=== PATIENT | male | born 1960 | race Caucasian/White ===

== ENCOUNTER 2020-07-08 10:31 | Inpatient (IN) | payer MEDICAID, SELFPAY ==
[2020-07-08] VITALS (14 sets, daily range): BP systolic 110–125; BP diastolic 78–89; PULSE 60–78; RESP 16–20; TEMP 36.1–36.4; O2SAT 91–97; BMI 34.2
--- NOTE | 2020-07-08 11:09 | ED_ITS ---
HPI - Abdominal Pain General Chief Complaint: Abdominal Pain Stated Complaint: Severe stomch pain Time Seen by Provider: 07/08/20 11:00 Source: patient Mode of arrival: Ambulatory Limitations: no limitations History of Present Illness HPI narrative: Patient is 59-year-old male history of congestive heart failure previously on hospice but now is no longer on hospice presenting with ongoing left-sided abdominal pain for the last 2-3 weeks. Try to get workup as an outpatient but was denied by insurance pain has continued in progressively gotten slightly worse. He denies any nausea or vomiting. She is not having chest pain but is having some shortness of breath with exertion and some mild orthopnea. Since says that he also has ext sleep apnea and wakes up frequently during the night. He has no significant lower extremity edema no fever or cough. MD complaint: abdominal pain Location: LUQ and LLQ Quality: cramping Radiation: none Migration to: no migration Relieving factors: nothing Exacerbating factors: nothing Related Data Allergies Allergy/AdvReac Type Severity Reaction Status Date / Time metformin Allergy Intermediate Vomiting Verified 07/08/20 10:41 Review of Systems Review of Systems ROS Unobtainable: All systems reviewed & are unremarkable except as noted in HPI and below Constitutional Constitutional: Denies chills, Denies fever(s), Denies lethargy and Denies weakness Eyes Eyes: Denies change in vision, Denies eye discharge, Denies irritation and Denies loss of vision ENT Ears, Nose, Mouth, and Throat: Denies dizziness Cardiovascular Cardiovascular: Denies chest pain, Denies rapid heart rate, Denies pedal edema, Denies edema, Denies leg edema, Reports dyspnea on exertion and Reports ort hopnea Respiratory Respiratory: Denies cough, Denies hemoptysis and Reports dyspnea on exertion Gastrointestinal Gastrointestinal: Reports as per HPI Musculoskeletal Musculoskeletal: Denies back pain and Denies myalgias Integumentary/Breasts Skin/Breast: Denies pruritus, Denies erythema, Denies rash and Denies wounds Neurologic Neurologic: Denies dizziness, Denies loss of vision and Denies weakness Patient History Medical History Congestive heart failure Social History household members: family Smoking Status: Never smoker Smoking Status: Never smoker alcohol intake frequency: 0-2 drinks per day Substance Use Type: marijuana Exam Initial Vital Signs Initial Vital Signs: Vital Signs Temperature 97.1 F 07/08/20 10:37 Pulse Rate 78 07/08/20 10:37 Respiratory Rate 18 07/08/20 10:37 Blood Pressure 110/78 07/08/20 10:37 Pulse Oximetry 97 07/08/20 10:37 GENERAL: Alert pleasant 51-year-old male appears older than stated age and in no acute distress. HEENT: Head atraumatic,EOMI, pupils reactive, face symmetric, moist mucous membranes CARDIOVASCULAR: Regular rate and rhythm without murmurs, rubs or gallops. RESPIRATORY: Breath sounds equal bilaterally, no wheezes rales or rhonchi. ABDOMEN: Soft, mild tenderness left upper quadrant and epigastric no guarding or rebound no right upper quadrant pain negative Leblanc sign EXTREMITIES: Normal range of motion, no clubbing or edema. Neurovascularly intact NEUROLOGICAL: Alert and oriented x4.Normal gait and speech. SKIN: Warm, dry, no laceration, no petechiae, no rashes or lesions. Course Orders Ordered: ED Orders 07/08/20 10:43 EKG-12 Lead Stat 07/08/20 11:07 XR chest 1V Stat 07/08/20 11:25 COVID19 - ADMIT (REGULATORY AFFAIRS ASSISTANT swab/PCR) Stat Complete Blood Count AUTO DIFF Stat Comprehensive Metabolic Panel Stat Lipase Stat NT-proBNP (BNP-Adult 18+) Stat Partial Thromboplastin Time Stat Prothrombin Time INR Stat Trop I [Troponin I] Stat 07/08/20 11:59 CT abdomen pelvis w con Stat 07/08/20 13:37 Urinalysis and Microscopic Stat Acetaminophen (Acetaminophen 325 Mg Tablet) 650 mg PO Q6HR PRN PRN Reason: Fever/Mild Pain (1-3) Calcium Carbonate (Calcium Carbonate 500 Mg Tab) 1,000 mg PO Q4HR PRN PRN Reason: Dyspepsia Dextrose (Dextrose 50 % In Water 25 Gm/50 Ml Syringe) 25 gm IV PRN PRN PRN Reason: Hypoglycemia Furosemide (Furosemide 40 Mg/4 Ml Vial) 40 mg IV 0700,1730 EBONY Heparin Sodium (Porcine) (Heparin 5,000 Unit/Ml Vial) 5,000 unit SUBCUT BID EBONY Insulin Aspart (Insulin Aspart 100 Unit/Ml Insuln Pen) 0 unit SUBCUT ACHS EBONY; Protocol Metoclopramide HCl (Metoclopramide 10 Mg/2 Ml Inj) 10 mg IV Q6HR PRN PRN Reason: Nausea And Vomiting Naloxone HCl (Naloxone 0.4 Mg/Ml Vial) 0.2 mg IV Q2MIN PRN PRN Reason: Opiate Reversal Oxycodone HCl (Oxycodone Ir 5 Mg Tablet) 5 mg PO Q6HR PRN PRN Reason: Pain, Moderate (4-6) Last Admin: 07/08/20 17:45 Dose: 5 mg Documented by: WILMA Pantoprazole Sodium (Pantoprazole 20 Mg Tablet) 20 mg PO 0600 EBONY Discontinued Medications Furosemide (Furosemide 20 Mg/2 Ml Vial) 20 mg IV 0700,1730 EBONY Last Admin: 07/08/20 17:46 Dose: 20 mg Documented by: WILMA Lorazepam (Lorazepam 0.5 Mg Tablet) 1 mg PO NOW ONE Stop: 07/08/20 11:58 Last Admin: 07/08/20 12:01 Dose: 1 mg Documented by: CAYDEN Morphine Sulfate (Morphine 2 Mg/Ml Inj) 2 mg IV NOW ONE Stop: 07/08/20 13:40 Last Admin: 07/08/20 13:45 Dose: 2 mg Documented by: JORDANA Ondansetron HCl (Ondansetron 4 Mg/2 Ml Inj) 4 mg IV NOW ONE Stop: 07/08/20 10:44 Last Admin: 07/08/20 11:44 Dose: 4 mg Documented by: CAYDEN Vital Signs Vital signs: Vital Signs - 8 hr 07/08/20 10:37 07/08/20 14:26 07/08/20 14:34 Temperature 97.1 F Pulse Rate 78 71 75 Respiratory Rate 18 20 Blood Pressure 110/78 116/81 Pulse Oximetry 97 96 07/08/20 14:45 07/08/20 15:00 07/08/20 15:15 Temperature Pulse Rate 67 70 65 Respiratory Rate 18 18 Blood Pressure 120/89 120/88 123/87 Pulse Oximetry 07/08/20 15:30 07/08/20 15:45 Temperature Pulse Rate 68 72 Respiratory Rate Blood Pressure 122/87 119/80 Pulse Oximetry MDM - Abdominal Pain Lab Data Attestation: I reviewed the patient's lab results. Result diagrams: 07/08/20 11:25 07/08/20 11:25 Labs: Lab Results 07/08/20 07/08/20 07/08/20 Range/Units 11:25 11:25 11:25 WBC 11.1 H (4.5-11.0) X10^3/uL RBC 5.19 (4.5-5.9) X10^6/uL Hgb 15.1 (13.5-17.5) g/dL Hct 46.6 (41-53) % MCV 89.7 (80-100) fL MCH 29.1 (26-34) PG MCHC 32.4 (30-36) % RDW 15.2 H (11.6-14.8) % Plt Count 190 (150-400) X10^3/uL Neut % (Auto) 63.2 (50-75) % Lymph % (Auto) 22.8 L (25-40) % Hanson % (Auto) 11.4 (3-14) % Eos % (Auto) 1.4 L (2-4) % Baso % (Auto) 1.2 (0-2) % Neut # (Auto) 7000 (7857-6618) /uL Lymph # (Auto) 2500 (8064-8557) /uL Hanson # (Auto) 1300 H (0-900) /uL Eos # (Auto) 200 (0-450) /uL Baso # (Auto) 100 (0-100) /uL PT 18.6 H (10.1-12.7) SECONDS INR 1.7 H (0.9-1.3) APTT 36 (26.4-36.2) SECONDS Sodium 138 (137-145) mmol/L Potassium 4.6 (3.4-5.1) mmol/L Chloride 95 L (98-107) mmol/L Carbon Dioxide 34 H (22-32) mmol/L BUN 41 H (9-20) mg/dL Creatinine 1.70 H (0.66-1.25) mg/dL Estimated GFR 41.6 L (>60) mL/min BUN/Creatinine Ratio 24.1 H (6-22) Glucose 155 H (70-100) mg/dL Calcium 9.4 (8.4-10.2) mg/dL Total Bilirubin 1.0 (0.2-1.3) mg/dL AST 37 (17-59) IU/L ALT 29 (<50) IU/L Alkaline Phosphatase 67 (38-126) U/L Troponin I (0.01-0.034) ng/mL NT-Pro-B Natriuret Pep (<125) pg/mL Total Protein 7.4 (6.3-8.2) g/dL Albumin 4.5 (3.5-5.0) g/dL Globulin 2.9 (1.7-4.1) g/dL Albumin/Globulin Ratio 1.6 (1.0-2.8) Lipase 127 (23-300) U/L Urine Color Urine Appearance Urine pH (4.5-8.0) Ur Specific Gillett (1.000-1.035) Urine Protein (Negative) Urine Glucose (UA) (Negative) g/dL Urine Ketones (NEGATIVE) Urine Occult Blood (Negative) Urine Nitrate (Negative) Urine Bilirubin (NEGATIVE) Urine Urobilinogen (0.2) E.U./dL Ur Leukocyte Esterase (NEGATIVE) Urine RBC (0-5/HPF) Urine WBC (0-5/HPF) Ur Squamous Epith Cells (0-5/HPF) Urine Bacteria (None) Ur Culture Indicated? SARS-CoV-2 (PCR) (Negative) 07/08/20 07/08/20 07/08/20 Range/Units 11:25 11:25 13:37 WBC (4.5-11.0) X10^3/uL RBC (4.5-5.9) X10^6/uL Hgb (13.5-17.5) g/dL Hct (41-53) % MCV (80-100) fL MCH (26-34) PG MCHC (30-36) % RDW (11.6-14.8) % Plt Count (150-400) X10^3/uL Neut % (Auto) (50-75) % Lymph % (Auto) (25-40) % Hanson % (Auto) (3-14) % Eos % (Auto) (2-4) % Baso % (Auto) (0-2) % Neut # (Auto) (0448-7968) /uL Lymph # (Auto) (0538-0948) /uL Hanson # (Auto) (0-900) /uL Eos # (Auto) (0-450) /uL Baso # (Auto) (0-100) /uL PT (10.1-12.7) SECONDS INR (0.9-1.3) APTT (26.4-36.2) SECONDS Sodium (137-145) mmol/L Potassium (3.4-5.1) mmol/L Chloride (98-107) mmol/L Carbon Dioxide (22-32) mmol/L BUN (9-20) mg/dL Creatinine (0.66-1.25) mg/dL Estimated GFR (>60) mL/min BUN/Creatinine Ratio (6-22) Glucose (70-100) mg/dL Calcium (8.4-10.2) mg/dL Total Bilirubin (0.2-1.3) mg/dL AST (17-59) IU/L ALT (<50) IU/L Alkaline Phosphatase (38-126) U/L Troponin I 0.029 (0.01-0.034) ng/mL NT-Pro-B Natriuret Pep 2650 H (<125) pg/mL Total Protein (6.3-8.2) g/dL Albumin (3.5-5.0) g/dL Globulin (1.7-4.1) g/dL Albumin/Globulin Ratio (1.0-2.8) Lipase (23-300) U/L Urine Color Yellow Urine Appearance Clear Urine pH 6.5 (4.5-8.0) Ur Specific Gillett 1.010 (1.000-1.035) Urine Protein Negative (Negative) Urine Glucose (UA) Negative (Negative) g/dL Urine Ketones Negative (NEGATIVE) Urine Occult Blood Negative (Negative) Urine Nitrate Negative (Negative) Urine Bilirubin Negative (NEGATIVE) Urine Urobilinogen 0.2 (0.2) E.U./dL Ur Leukocyte Esterase Negative (NEGATIVE) Urine RBC None seen (0-5/HPF) Urine WBC 0-1/hpf (0-5/HPF) Ur Squamous Epith Cells 0-1 /hpf (0-5/HPF) Urine Bacteria None seen (None) Ur Culture Indicated? Cult not indicated SARS-CoV-2 (PCR) Negative (Negative) Imaging Data Chest x-ray: Radiologist's Impression: PROCEDURE: XR CHEST 1V INDICATIONS: sob TECHNIQUE: One view of the chest was acquired. COMPARISON: None. FINDINGS: Surgical changes and devices: Pacemaker. Lungs and pleura: Lungs are clear. No pleural effusions or pneumothorax. Mediastinum: Mediastinal contours appear normal. Heart size is enlarged. Bones and chest wall: No suspicious bony lesions. Overlying soft tissues appear unremarkable. IMPRESSION: No acute pulmonary process. Dictated by: Brooklny Guzman M.D. on 07/08/2020 at 12:19 Approved by: Brooklyn Guzman M.D. on 07/08/2020 at 12:19 CT scan - abdomen/pelvis: Radiologist's Impression: PROCEDURE: CT ABDOMEN PELVIS W CON INDICATIONS: left sided pain TECHNIQUE: After the administration of oral and intravenous contrast, 5 mm thick sections acquired from the diaphragms to the symphysis. 5 mm thick coronal and sagittal reformats were performed. For radiation dose reduction, the following was used: automated exposure control, adjustment of mA and/or kV according to patient size. COMPARISON: None. FINDINGS: Image quality: Excellent. ABDOMEN: Lung bases: Lung bases are clear. Heart size is normal. Solid organs: Liver is enlarged with steatosis. Gallbladder has been removed. Biliary system is non-dilated. Pancreas enhances normally. Spleen is normal in size and enhancement. There is a slight nodular prominence of the adrenal glands bilaterally. Kidneys are normal in size and enhancement, without hydronephrosis. Peritoneum and bowel: Stomach, small bowel, and colon loops are normal in caliber and wall thickness. There is a focus of free fluid within the midline of the lower pelvis measuring 11.4 cm AP x 7.9 cm transverse. Fluid tracks into the right lower quadrant surrounding the region of the cecum. The appendix is not clearly identified. Mild scattered colonic diverticula are present. Visualized portions of the colon particularly the sigmoid which is adjacent to the fluid collection is minimally thickened. There is no free air. Nodes and vessels: No retroperitoneal or mesenteric adenopathy. Aorta and inferior vena cava are normal in caliber. Miscellaneous: No ventral hernias. PELVIS: Genitourinary: Bladder wall thickness is normal. Miscellaneous: Bilateral fat containing inguinal hernias are present. Bones: No suspicious bony lesions. No vertebral body compression fractures. IMPRESSION: 1. Prominent focus of central pelvic fluid as described above of uncertain etiology. It is noted that the appendix is not identified and ruptured appendix cannot be excluded. There is no visualized free air to suggest visceral perforation. Clinical correlation and potential surgical consultation are recommended. 2. Hepatomegaly with steatosis. 3. Mild nodularity of the adrenal glands bilaterally, nonspecific. Dictated by: Brooklyn Guzman M.D. on 07/08/2020 at 12:20 ECG Data Attestation: I personally reviewed and interpreted this ECG as follows: Prior ECG tracings: not available for review Interpretation: Paced rhythm rate [address] changes no priors to compare MDM Narrative Medical decision making narrative: Patient has been having ongoing abdominal pain for a number of weeks may be slightly worse today. He has mild leukocytosis of 11 remains afebrile. The collection is found on CT. Difficult to discern with this fluid collection is from. There is no definite perforation identified. Patient's pain is actually very mild he has not even require pain medication in the emergency department. Consultation with surgery, also unclear what his collections is from. He does have some mild CHF exacerbation with symptoms of shortness of breath and mild orthopnea with mild elevation of BNP of 2600. 2:[address] foley updated patient's symptoms test results at this time unclear what fluid collection is from. Recommends admitting to Medicine with possible Radiology to drain fluid collection. 2:[address] Soares updated patient's symptoms test results requesting previous record is and is in ED to see and evaluate patient. At this time is patient needs observation. Discharge Plan Departure Patient Disposition: Admitted as Observation Clinical Impression: Abdominal pain Qualifiers: Abdominal location: generalized Qualified Code(s): R10.84 - Generalized abdominal pain Admit Date/Time: 07/08/20 15:56 Admit Provider: Giovanny Santiago
[2020-07-08 11:40] LABS: Add Manual Diff / Slide Review NO; Basophils Absolute Auto 100 /uL (0-100); Basophils Percent Auto 1.2 % (0-2); Eosinophils Absolute Auto 200 /uL (0-450); Eosinophils Percent Auto 1.4 % (2-4); Hematocrit 46.6 % (41-53); Hemoglobin 15.1 g/dL (13.5-17.5); Lymphocytes Absolute Auto 2500 /uL (1100-4500); Lymphocytes Percent Auto 22.8 % (25-40); Mean Corpuscular HGB Conc 32.4 % (30-36); Mean Corpuscular Hemoglobin 29.1 PG (26-34); Mean Corpuscular Volume 89.7 fL (80-100); Monocytes Absolute Auto 1300 /uL (0-900); Monocytes Percent Auto 11.4 % (3-14); Neutrophils Absolute Auto 7000 /uL (1500-7000); Neutrophils Percent Auto 63.2 % (50-75); Platelet Count 190 X10^3/uL (150-400); Red Blood Cell Count 5.19 X10^6/uL (4.5-5.9); Red Cell Distribution Width 15.2 % (11.6-14.8); White Blood Cell Count 11.1 X10^3/uL (4.5-11.0)
[2020-07-08] MEDS: ONDANSETRON 4 MG/2 ML INJ IV (11:44)
[2020-07-08 11:46] LABS: INR 1.7 (0.9-1.3); Prothrombin Time 18.6 SECONDS (10.1-12.7)
[2020-07-08 11:49] LABS: PTT Partial Thromboplastin Tim 36 SECONDS (26.4-36.2)
[2020-07-08 11:51] LABS: Alanine Aminotransferase 29 IU/L (<50); Albumin 4.5 g/dL (3.5-5.0); Albumin Globulin Ratio 1.6 (1.0-2.8); Alkaline Phosphatase 67 U/L (38-126); Aspartate Aminotransferase 37 IU/L (17-59); BUN Creatinine Ratio 24.1 (6-22); Blood Urea Nitrogen 41 mg/dL (9-20); Calcium 9.4 mg/dL (8.4-10.2); Carbon Dioxide 34 mmol/L (22-32); Chloride 95 mmol/L (98-107); Estimated Glomerular Filt Rate 41.6 mL/min (>60); Globulin 2.9 g/dL (1.7-4.1); Glucose 155 mg/dL (70-100); HEMOLYSIS < 15 (0-50); Lipase 127 U/L (23-300); Potassium 4.6 mmol/L (3.4-5.1); Sodium 138 mmol/L (137-145); Total Protein 7.4 g/dL (6.3-8.2)
--- NOTE | 2020-07-08 11:59 | DI.CT.S_ITS ---
PROCEDURE: CT ABDOMEN PELVIS W CON INDICATIONS: left sided pain TECHNIQUE: After the administration of oral and intravenous contrast, 5 mm thick sections acquired from the diaphragms to the symphysis. 5 mm thick coronal and sagittal reformats were performed. For radiation dose reduction, the following was used: automated exposure control, adjustment of mA and/or kV according to patient size. COMPARISON: None. FINDINGS: Image quality: Excellent. ABDOMEN: Lung bases: Lung bases are clear. Heart size is normal. Solid organs: Liver is enlarged with steatosis. Gallbladder has been removed. Biliary system is non-dilated. Pancreas enhances normally. Spleen is normal in size and enhancement. There is a slight nodular prominence of the adrenal glands bilaterally. Kidneys are normal in size and enhancement, without hydronephrosis. Peritoneum and bowel: Stomach, small bowel, and colon loops are normal in caliber and wall thickness. There is a focus of free fluid within the midline of the lower pelvis measuring 11.4 cm AP x 7.9 cm transverse. Fluid tracks into the right lower quadrant surrounding the region of the cecum. The appendix is not clearly identified. Mild scattered colonic diverticula are present. Visualized portions of the colon particularly the sigmoid which is adjacent to the fluid collection is minimally thickened. There is no free air. Nodes and vessels: No retroperitoneal or mesenteric adenopathy. Aorta and inferior vena cava are normal in caliber. Miscellaneous: No ventral hernias. PELVIS: Genitourinary: Bladder wall thickness is normal. Miscellaneous: Bilateral fat containing inguinal hernias are present. Bones: No suspicious bony lesions. No vertebral body compression fractures. IMPRESSION: 1. Prominent focus of central pelvic fluid as described above of uncertain etiology. It is noted that the appendix is not identified and ruptured appendix cannot be excluded. There is no visualized free air to suggest visceral perforation. Clinical correlation and potential surgical consultation are recommended. 2. Hepatomegaly with steatosis. 3. Mild nodularity of the adrenal glands bilaterally, nonspecific. Dictated by: Brooklyn Guzman M.D. on 07/08/2020 at 12:20 Approved by: Brooklyn Guzman M.D. on 07/08/2020 at 12:27
[2020-07-08] MEDS: LORazepam 0.5 MG TABLET 1 MG PO (12:01)
[2020-07-08 12:03] LABS: NT-proBNP (BNP-Adult 18+) 2650 pg/mL (<125); Troponin I 0.029 ng/mL (0.01-0.034)
[2020-07-08] MEDS: MORPHINE 2 MG/ML INJ IV (13:45)
[2020-07-08 13:54] LABS: Bacteria Urine None Seen; RBC Urine None Seen (0-5/HPF)
[2020-07-08 13:56] LABS: Appearance Urine UA CLEAR; Bilirubin Urine UA NEGATIVE (NEGATIVE); Color Urine UA YELLOW; Glucose Urine UA NEGATIVE (Negative); Ketones Urine UA NEGATIVE (NEGATIVE); Leukocyte Esterase Urine UA NEGATIVE (NEGATIVE); Nitrite Urine UA NEGATIVE (Negative); Occult Blood Urine UA NEGATIVE (Negative); Protein Urine UA NEGATIVE (Negative); Urobilinogen Urine UA 0.2 E.U./dL (0.2); pH Urine UA 6.5 (4.5-8.0)
[2020-07-08 14:04] LABS: Culture Indicated Urine Cult Not Indicated; Squamous Epithelial Cell Urine 0-1 /HPF (0-5/HPF); WBC Urine 0-1/HPF (0-5/HPF)
--- NOTE | 2020-07-08 15:57 | P.HP_ITS ---
History of Present Illness History of Present Illness Date Patient Seen: 07/08/20 Time Patient Seen: 15:57 Chief complaint: Severe stomch pain Narrative: Raman Roldan is a 59 year old male with PMH of DM2, dilated cardiomyopathy with PPM and Bi-V ICD, atrial fibrillation, history of methamphetamine use in remission, current daily marijuana use, CKD III, HTn and HLD Who presented to the emergency room with continued abdominal pain over the past month. patient states for about the past month he has had suprapubic cramping like abdominal pain with radiation to both sides. This started of mild and he sought care with his primary care doctor, records were obtained and this showed that she thought that the patient may have diverticulitis but was unable to get a CT scan. His symptoms were reportedly improving with a low-fiber diet and no further evaluation was sought at that time but urged to go to the ER if pain continued. he sometimes gets epigastric pain that feels like a burning sensation as well. He has early satiety and over the past two weeks has not been able to eat without vomiting. He denies dark stools or BRBPR, there is no hematemesis. He denies fevers, or chills. He denies any chest pain, palpitations. He has felt more dyspneic on exertion over the past month, with him being able to a approximately walk about 15 ft before he gets short of breath. The patient states that he has been taking his medications, although he has thrown at at times after taking them. He does report an increase in the number of showers he takes as this does sometimes make him feel better. In the emergency room, his vital signs were unremarkable. Laboratory evaluation showed a mild leukocytosis with a WBC of 11.1, the remainder of his CBC was unremarkable. Coagulation study showed an INR of 1.7 (1.2 back in 01/2020). Chemistries revealed a creatinine of 1.7, although he does have a history of CKD but [facility] and his creatinine was 1.25 per that documentation in 01/2020. Troponin was within normal limits at 0.029. ProBNP was elevated at 2650. EKG with paced rhythm. Chest x-ray showed cardiomegaly without acute pulmonary disease. CT scan showed a focus of free fluid within the lower pelvis tracking into the right lower quadrant that is noted to be 11.4 cm x 7.9 cm transversely. Patient had a CT scan back in 2019 that was reviewed with the radiologist for comparison. This fluid was present at that time, but to a lesser extent. This area is not amenable for drainage according to the radiologist. Patient was admitted for further evaluation. Patient History Medical History Congestive heart failure Family & Social History Safety & Behavioral: Feels Safe in Current Yes Environment Been Physically Hurt or No Threatened By a Person Tobacco & Substance use: Smoking Status Never smoker alcohol intake frequency 0-2 drinks per day Substance Use Type marijuana Meds Home Medications and Allergies Allergies Allergy/AdvReac Type Severity Reaction Status Date / Time metformin Allergy Intermediate Vomiting Verified 07/08/20 10:41 Review of Systems Review of Systems Narrative: All other systems reviewed with the patient and are negative unless otherwise stated. Exam Vital Signs (past 8 hours): - 07/08/20 10:37 07/08/20 14:26 Temperature 97.1 F Pulse Rate 78 71 Respiratory Rate 18 20 Blood Pressure 110/78 116/81 Pulse Oximetry 97 96 Oxygen Delivery Method Room Air Narrative Exam Narrative: GENERAL APPEARANCE: Well developed, well nourished, in no acute distress. Obese with BMI of 34.2 SKIN: Inspection of the skin reveals no rashes, ulcerations or petechiae. large chronic bump on left frontal area of his head. HEENT: Normocephalic atraumatic (except for skin lesion as noted above), extraocular muscles are intact, oropharynx is clear and mucous membranes are moist, neck is supple without adenopathy NECK: Supple and symmetric. There was no thyroid enlargement, and no tenderness, or masses were felt. CHEST: Normal AP diameter and normal contour without any kyphoscoliosis. LUNGS: Auscultation of the lungs revealed no wheezes, rhonchi, or rales. CARDIOVASCULAR: There was a regular rate and rhythm without any murmurs, gallops, rubs. Peripheral pulses were 2+ and symmetric. ABDOMEN: Soft and nontender with normal bowel sounds. No ascites was noted. MUSCULOSKELETAL: There was no tenderness or effusions noted. Muscle strength and tone were normal. EXTREMITIES: No cyanosis, clubbing or edema. NEUROLOGIC: Alert and oriented x 3. Normal affect. Strength is +5/5 in the Upper Extremities and Lower Extremities Bilaterally. Sensation to touch was normal. Objective ECG Impression: AV dual paced rhythm. Imaging CT scan - abdomen: My impression: Fluid collection between the bladder and colon, increased in size compared to 03/2020 at [facility]. Radiologist's impression: PROCEDURE: CT ABDOMEN PELVIS W CON INDICATIONS: left sided pain TECHNIQUE: After the administration of oral and intravenous contrast, 5 mm thick sections acquired from the diaphragms to the symphysis. 5 mm thick coronal and sagittal reformats were performed. For radiation dose reduction, the following was used: automated exposure control, adjustment of mA and/or kV according to patient size. COMPARISON: None. FINDINGS: Image quality: Excellent. ABDOMEN: Lung bases: Lung bases are clear. Heart size is normal. Solid organs: Liver is enlarged with steatosis. Gallbladder has been removed. Biliary system is non-dilated. Pancreas enhances normally. Spleen is normal in size and enhancement. There is a slight nodular prominence of the adrenal glands bilaterally. Kidneys are normal in size and enhancement, without hydronephrosis. Peritoneum and bowel: Stomach, small bowel, and colon loops are normal in caliber and wall thickness. There is a focus of free fluid within the midline of the lower pelvis measuring 11.4 cm AP x 7.9 cm transverse. Fluid tracks into the right lower quadrant surrounding the region of the cecum. The appendix is not clearly identified. Mild scattered colonic diverticula are present. Visualized portions of the colon particularly the sigmoid which is adjacent to the fluid collection is minimally thickened. There is no free air. Nodes and vessels: No retroperitoneal or mesenteric adenopathy. Aorta and inferior vena cava are normal in caliber. Miscellaneous: No ventral hernias. PELVIS: Genitourinary: Bladder wall thickness is normal. Miscellaneous: Bilateral fat containing inguinal hernias are present. Bones: No suspicious bony lesions. No vertebral body compression fractures. IMPRESSION: 1. Prominent focus of central pelvic fluid as described above of uncertain etiology. It is noted that the appendix is not identified and ruptured appendix cannot be excluded. There is no visualized free air to suggest visceral perforation. Clinical correlation and potential surgical consultation are recommended. 2. Hepatomegaly with steatosis. 3. Mild nodularity of the adrenal glands bilaterally, nonspecific. Labs Result Diagrams: 07/08/20 11:25 07/08/20 11:25 Labs: Laboratory Results - last 24 hr 07/08/20 07/08/2021 11:25 11:25 11:25 WBC 11.1 H RBC 5.19 Hgb 15.1 Hct 46.6 MCV 89.7 MCH 29.1 MCHC 32.4 RDW 15.2 H Plt Count 190 Neut % (Auto) 63.2 Lymph % (Auto) 22.8 L [place] % (Auto) 11.4 Eos % (Auto) 1.4 L Baso % (Auto) 1.2 Neut # (Auto) 7000 Lymph # (Auto) 2500 [place] # (Auto) 1300 H Eos # (Auto) 200 Baso # (Auto) 100 PT 18.6 H INR 1.7 H APTT 36 Sodium 138 Potassium 4.6 Chloride 95 L Carbon Dioxide 34 H BUN 41 H Creatinine 1.70 H Estimated GFR 41.6 L BUN/Creatinine Ratio 24.1 H Glucose 155 H Calcium 9.4 Total Bilirubin 1.0 AST 37 ALT 29 Alkaline Phosphatase 67 Troponin I NT-Pro-B Natriuret Pep Total Protein 7.4 Albumin 4.5 Globulin 2.9 Albumin/Globulin Ratio 1.6 Lipase 127 Urine Color Urine Appearance Urine pH Ur Specific [place] Urine Protein Urine Glucose (UA) Urine Ketones Urine Occult Blood Urine Nitrate Urine Bilirubin Urine Urobilinogen Ur Leukocyte Esterase Urine RBC Urine WBC Ur Squamous Epith Cells Urine Bacteria Ur Culture Indicated? 07/08/20 07/08/20 11:25 13:37 WBC RBC Hgb Hct MCV MCH MCHC RDW Plt Count Neut % (Auto) Lymph % (Auto) [place] % (Auto) Eos % (Auto) Baso % (Auto) Neut # (Auto) Lymph # (Auto) [place] # (Auto) Eos # (Auto) Baso # (Auto) PT INR APTT Sodium Potassium Chloride Carbon Dioxide BUN Creatinine Estimated GFR BUN/Creatinine Ratio Glucose Calcium Total Bilirubin AST ALT Alkaline Phosphatase Troponin I 0.029 NT-Pro-B Natriuret Pep 2650 H Total Protein Albumin Globulin Albumin/Globulin Ratio Lipase Urine Color Yellow Urine Appearance Clear Urine pH 6.5 Ur Specific [place] 1.010 Urine Protein Negative Urine Glucose (UA) Negative Urine Ketones Negative Urine Occult Blood Negative Urine Nitrate Negative Urine Bilirubin Negative Urine Urobilinogen 0.2 Ur Leukocyte Esterase Negative Urine RBC None seen Urine WBC 0-1/hpf Ur Squamous Epith Cells 0-1 /hpf Urine Bacteria None seen Ur Culture Indicated? Cult not indicated Assessment & Plan Assessment & Plan narrative: Raman Roldan is a 59 year old male with PMH of DM2, dilated cardiomyopathy with PPM and Bi-V ICD, atrial fibrillation, history of methamphetamine use in remission, current daily marijuana use, CKD III, HTn and HLD Who presented to the emergency room with continued abdominal pain over the past month. He was admitted for further evaluation of continued nausea/vomiting and this free fluid in his pelvis. 1. abdominal pain and pelvic free fluid, acute on chronic, present on admission - UA negative. lipase within normal limits. - Differential is broad. consider ascites with heart failure given constellation of early satiety, elevated INR, dyspnea on exertion. infectious et iologies for fluid (diverticulitis, etc) or malignant causes can also be considered, although patient is well appearing and non-tender on exam. Also consider cyclic vomiting syndrome given marijuana use or gastroparesis. - attempt diuresis with 40 mg IV BID, control with pain medications for now, counseled on marijuana use. - unclear if this fluid collection noted on CT imaging is related to symptoms. It was present on prior imaging noted in 03/2020 but was smaller at that time. Suspect ascites from hepatic congestion at this time in addition to above diagnoses. 2. DM2, chronic - continue home lantus and start sliding scale correctional 3. Non-ischemic cardiomyopathy, probable acute on chronic heart failure with unknown ejection fraction with probable hepatic congestion - continue diuresis with IV lasix 40 mg IV BID to see if improvement in symptoms as noted above. ProBNP of 2650. No prior TTE available for review at this time. - will obtain TTE for suspected acute on chronic heart failure. - JETHRO, hepatic congestion likely in setting of heart failure. - strict Is and Os. 4. history of PPM placement, atrial fibrillation - placed 03/2020 at [facility]. EKG shows paced rhythm. No complaints of chest pain and troponin is within normal limits. 5. polystubstance use with history of methamphetamine use and current marijuana use - counseled on marijuana cessation as noted above. 6. JETHRO on CKD III, present on admission - suspect related to volume overload at this time given above presentation, will continue to monitor labs as a metabolic alkalosis does argue against this (bicarb of 34 on admission). 7. HTN, chronic - continue home medications 8. HLD, chronic. - continue home medications. Code: discussed with patient and surrogate decision maker, his son at bedside. Previously DNR with hospice, however at this time wants to be full code. DVT: Heparin Sub q Dispo: admit under observation status.
--- NOTE | 2020-07-08 16:02 | DI.ECHO.S_ITS ---
[facility] +---------+ : : [address] : [address] : : : : [id number] : : : : Phone: [phone]+ Echocardiogram Report + + :Name: UMANG GARCIA Study Date: 07/09/2020 Height: 71 in : :[facility] ReadingLocation: Weight: 242 lb : : Gender: Male BSA: 2.3 m2 : :: 1960 Age: 59 yrs BP: 110/78 mmHg: :Reason For Study: HISTORY OF DILATED CARDIOMYOPATHY, ASCITES : :SUSPECT HEART FAILURE RELATED : :Ordering Physician: NAKUL, : :CHARLIE SAUL Performed By: Samara Booth : :Referring: CHARLIE MOTA : + + Interpretation Summary The left ventricle is markedly dilated. The ejection fraction is estimated to be 10-15%. Compared to the prior exam, the left ventricular function is reduced. Previous LV ejection fraction was 35 to 40%. Diastolic parameters suggest a restrictive filling pattern consistent with probable significantly elevated filling pressures. The right ventricle is severely dilated. There is a pacemaker lead in the right ventricle. Right ventricular systolic function is mildly reduced. Tented mitral leaflets due to significant LV enlargement. There is moderate mitral regurgitation. Compared to the prior echo study, there has been an increase in the severity of mitral regurgitation. On color Doppler there appears to be mild tricuspid regurgitation however there is significant systolic reversal of hepatic flow suggestive of significant tricuspid regurgitation. The right ventricular systolic pressure is estimated to be at least 43 mmHg based on an estimated right atrial pressure of 15 mm Hg. Procedure: A two-dimensional transthoracic echocardiogram with color flow and Doppler was performed. The study quality was technically adequate. Comparison is made with the echocardiogram of 12/16/2014. The patient has a paced rhythm. The patient was in normal sinus rhythm during the exam. The patient had a bundle branch block rhythm during the exam. Left Ventricle: The left ventricle is markedly dilated. There is mild concentric left ventricular hypertrophy. The estimated left ventricular end diastolic volume is 469 ml. There is no thrombus. The ejection fraction is estimated to be 10-15%. Compared to the prior exam, the left ventricular function is reduced. There is severe global hypokinesis of the left ventricle. Diastolic parameters suggest a restrictive filling pattern consistent with probable significantly elevated filling pressures. Right Ventricle: The right ventricle is severely dilated. There is a pacemaker lead in the right ventricle. Right ventricular systolic function is mildly reduced. Atria: The left atrium is severely dilated. Both atria have mildly increased in size since the prior echo exam. The right atrium is severely dilated. There is no Doppler evidence for an interatrial shunt. Mitral Valve: There is mild mitral annular calcification. Tented mitral leaflets due to significant LV enlargement. There is moderate mitral regurgitation. Compared to the prior echo study, there has been an increase in the severity of mitral regurgitation. Aortic Valve: The aortic valve is trileaflet. There is no aortic valve stenosis. No aortic regurgitation is present. Tricuspid Valve: The tricuspid valve leaflets are thin and pliable. The right ventricular systolic pressure is estimated to be at least 43 mmHg based on an estimated right atrial pressure of 15 mm Hg. On color Doppler there appears to be mild tricuspid regurgitation however there is significant systolic reversal of hepatic flow suggestive of significant tricuspid regurgitation. Pulmonic Valve: The pulmonic valve leaflets are thin and pliable; valve motion is normal. There is trace pulmonic regurgitation. Great Vessels: The aortic root is not well visualized but is probably normal size. The dimensions of the ascending aorta are normal. The IVC is dilated (diameter is greater than 2.1 cm) and it collapses less than 50% with a sniff. This suggests a high right atrial pressure of 15 mm Hg. Pericardium/ Pleura There is a loculated trace pericardial effusion behind basal posterior wall. No obvious echo evidence of tamponade. There is no pleural effusion. MMode/2D Measurements & Calculations LVIDd: 8.0 cm LVOT diam: 2.6 cm LVIDs: 7.1 cm asc Aorta Diam: 3.2 cm FS: 11.4 % Ao Arch Diam (Prox Trans): 2.9 cm EPSS: 2.8 cm IVSd: 1.2 cm LVPWd: 1.1 cm LV jones. diameter/BSA (cm/m^2): 3.5 LV sys. diameter/BSA (cm/m^2): 3.1 LA A2 area: 37.3 cm2 RA long axis: 7.2 cm LA A4 area: 27.1 cm2 RA area: 32.2 cm2 LA length (vol): 7.0 cm RA vol: 123.0 ml LA vol: 122.3 ml RA : 53.8 ml/m2 LA vol index: 53.5 ml/m2 IVC diam: 2.8 cm RVD1 (basal): 5.6 cm TAPSE: 1.8 cm Doppler Measurements & Calculations Ao V2 max: 102.5 cm/sec LVOT Max Bryant: 47.0 cm/sec Ao V2 mean: 73.6 cm/sec LV V1 max P.88 mmHg Ao max P.2 mmHg LV V1 VTI: 6.8 cm Ao mean P.4 mmHg MAX(I,D): 2.2 cm2 Ao V2 VTI: 16.8 cm MAX(V,D): 2.5 cm2 sev ratio: 0.41 MAX indexed to BSA (cm^2/m^2): 0.96 MV E max bryant: 142.8 cm/sec TR max bryant: 263.5 cm/sec Med Peak E' Bryant: 2.7 cm/sec TR max P.8 mmHg E/E' med: 53.4 PA V2 max: 54.8 cm/sec Lat Peak E' Bryant: 3.5 cm/sec PA V2 mean: 33.4 cm/sec E/E' lat: 41.1 PA mean P.53 mmHg E/e' average: 47.2 PA pr(Accel): 37.9 mmHg MV dec time: 0.18 sec MR ERO: 0.31 cm2 MR PISA: 4.1 cm2 SV(LVOT): 37.1 ml MR flow rate: 151.0 cm3/sec MR PISA radius: 0.81 cm Reading Physician:12:05 PM
[2020-07-08 16:09] LABS: COVID19 - ADMIT (NP swab/PCR) Negative (Negative)
[2020-07-08] MEDS: OXYCODONE IR 5 MG TABLET PO ×2 (17:45→22:58)
[2020-07-08] MEDS: FUROSEMIDE 20 MG/2 ML VIAL IV (17:46)
[2020-07-08 19:48] LABS: Troponin I 0.032 ng/mL (0.01-0.034)
[2020-07-08] MEDS: METOCLOPRAMIDE 10 MG/2 ML INJ IV (20:51)
[2020-07-08] MEDS: HEPARIN 5,000 UNIT/ML VIAL 5000 UNIT SUBCUT (21:28)
[2020-07-08] MEDS: INSULIN GLARGINE 100 UNIT/ML 3ML PEN 20 UNIT SUBCUT (21:29)
[2020-07-09] VITALS (10 sets, daily range): BP systolic 107–142; BP diastolic 40–86; PULSE 60–75; RESP 18–20; TEMP 36.4–36.9; O2SAT 92–98
--- NOTE | 2020-07-09 02:26 | PC.NURSE ---
Addendum entered by Arabella Harmon R.N. 07/09/20 06:34: Calmer now since receiving Clonazepam. Complaining of nausea so medicated with Reglan. Addendum entered by Arabella Harmon R.N. 07/09/20 05:31: Has been awake all night and had asked Randolph SABILLON, for sleeping medication earlier but she was reluctant to order anything based on patient's past history of polysubstance abuse. For past couple hours has been very restless and now found IV pulled out. Patient requests Lorazepam but noted on home med list he had prescription pre hospitalization for Clonazepam so [facility] [employer] ordered Clonazepam and now given. Addendum entered by Arabella Harmon R.N. 07/09/20 04:14: correction to original note as was documented on wrong patient: patient HR is regular and is not on telemetry Addendum entered by Arabella Harmon R.N. 07/09/20 03:53: Patient complained of 8/10 abdominal pain and Oxycodone ordered for 4-6 pain so verified with Randolph SABILLON, that Oxycodone could be given for 7-10 pain as well. New order entered on emar. Original Note: 7643: patient is alert and oriented. Breath sounds diminished but CTA with RA sat of 97%. Is SOB with/without exertion but able to speak in complete sentences. Has intermittent cough/clearing of throat bringing up mucous. HR irregular with history of afib; telemetry reading is afib CVR w/BBB. Denies nausea. BT hypoactive and abdomen is large and semi-firm with possible ascites. Did complain of abdominal pain at shift change and was medicated with Oxycodone and now states pain is improved to 4/10 but describes as a grabbing pain. Is voiding per urinal and denies dysuria, frequency or urgency. Able to move himself in bed. Gait not assessed as not out of bed at this time but reported to be weak in lower extremities and needing SBA when out of bed. Wearing bilateral calf SCD's. Fall risk score is moderate and bed alarm is activated.
[2020-07-09] MEDS: OXYCODONE IR 5 MG TABLET PO ×3 (03:09→19:44)
[2020-07-09 05:17] LABS: Add Manual Diff / Slide Review NO; Basophils Absolute Auto 200 /uL (0-100); Basophils Percent Auto 1.2 % (0-2); Eosinophils Absolute Auto 100 /uL (0-450); Eosinophils Percent Auto 0.7 % (2-4); Hematocrit 48.6 % (41-53); Hemoglobin 15.3 g/dL (13.5-17.5); Lymphocytes Absolute Auto 3300 /uL (1100-4500); Lymphocytes Percent Auto 22.1 % (25-40); Mean Corpuscular HGB Conc 31.4 % (30-36); Mean Corpuscular Hemoglobin 28.4 PG (26-34); Mean Corpuscular Volume 90.5 fL (80-100); Monocytes Absolute Auto 2000 /uL (0-900); Monocytes Percent Auto 13.6 % (3-14); Neutrophils Absolute Auto 9500 /uL (1500-7000); Neutrophils Percent Auto 62.4 % (50-75); Platelet Count 208 X10^3/uL (150-400); Red Blood Cell Count 5.37 X10^6/uL (4.5-5.9); Red Cell Distribution Width 15.1 % (11.6-14.8); White Blood Cell Count 15.1 X10^3/uL (4.5-11.0)
[2020-07-09 05:19] LABS: Prothrombin Time 22.5 SECONDS (10.1-12.7)
[2020-07-09 05:26] LABS: Alanine Aminotransferase 136 IU/L (<50); Albumin 4.5 g/dL (3.5-5.0); Albumin Globulin Ratio 1.6 (1.0-2.8); Alkaline Phosphatase 69 U/L (38-126); Aspartate Aminotransferase 238 IU/L (17-59); BUN Creatinine Ratio 22.6 (6-22); Bilirubin Total 2.2 mg/dL (0.2-1.3); Bilirubin Unconjugated 1.7 mg/dL (0.0-1.1); Blood Urea Nitrogen 43 mg/dL (9-20); Calcium 9.2 mg/dL (8.4-10.2); Carbon Dioxide 31 mmol/L (22-32); Chloride 92 mmol/L (98-107); Estimated Glomerular Filt Rate 36.6 mL/min (>60); Globulin 2.8 g/dL (1.7-4.1); Glucose 137 mg/dL (70-100); HEMOLYSIS < 15 (0-50); Magnesium 2.1 mg/dL (1.6-2.3); Potassium 4.8 mmol/L (3.4-5.1); Sodium 133 mmol/L (137-145); Total Protein 7.3 g/dL (6.3-8.2)
[2020-07-09] MEDS: clonazePAM 0.5 MG TABLET PO ×2 (05:30→22:18)
[2020-07-09 05:54] LABS: TSH w/ Reflex to FT4 8.76 uIU/mL (0.47-4.68)
[2020-07-09] MEDS: FUROSEMIDE 40 MG/4 ML VIAL IV (06:17)
[2020-07-09] MEDS: PANTOPRAZOLE 20 MG TABLET PO (06:17)
[2020-07-09] MEDS: SODIUM CHLORIDE 0.9% FLUSH 10 ML IV ×4 (06:17→21:21)
[2020-07-09 06:24] LABS: Free T4, Direct Thyroxine 1.74 ng/dL (0.78-2.19)
[2020-07-09] MEDS: METOCLOPRAMIDE 10 MG/2 ML INJ IV ×2 (06:26→18:52)
--- NOTE | 2020-07-09 08:40 | DI.US.S_ITS ---
PROCEDURE: US ABDOMEN COMPLETE INDICATIONS: ELEVATED LIVER ENZYMES AND BILIRUBIN. LOWER ABDOMINAL PAIN TECHNIQUE: Real-time scanning was performed of the abdominal and retroperitoneal organs, with image documentation. Color and pulse Doppler interrogation was also performed of the hepatic and splenic vessels, or of the lesion of interest. COMPARISON: None. FINDINGS: Liver: Liver is normal in size and homogeneous in echotexture. Doppler: Main portal vein is patent, with luminal diameter of 8.8 mm (normal of 13-16 mm). On pulse Doppler interrogation, portal vein flow direction is hepatopetal. Hepatic artery Doppler waveforms demonstrate normal systolic upstrokes. Hepatic veins are all patent, with expected triphasic Doppler waveforms. Gallbladder: Status post cholecystectomy. Biliary ducts: No intrahepatic biliary ductal dilatation. Extrahepatic bile duct is 0.7 mm in caliber. Normal biliary caliber is 6-7 mm or less, or 10 mm or less post-cholecystectomy. Spleen: Spleen is normal in size and homogeneous in echotexture. Pancreas: Visualized portions of the pancreas appear normal. Kidneys: Both kidneys are normal in size and echotexture. Right kidney measures 9.1 cm long; left kidney measures 10.3 cm long. No hydronephrosis or nephrolithiasis. No solid renal masses. Aorta: Visualized abdominal aorta is normal in caliber at less than 3 cm. Iliacs: Not able to visualize. IVC: Intrahepatic inferior vena cava is patent. Appendix: The appendix is not visualized. There are no secondary findings acute appendicitis. Miscellaneous: No free abdominal fluid. IMPRESSION: 1. No acute ultrasound abnormality. 2. Bladder wall thickening could be due to chronic urine outlet obstruction. 3. Mild hepatomegaly measuring up to 20 centimeters. Dictated by: Willy Mina M.D. on 07/09/2020 at 15:51 Approved by: Willy Mina M.D. on 07/09/2020 at 15:56
[2020-07-09] MEDS: HEPARIN 5,000 UNIT/ML VIAL 5000 UNIT SUBCUT ×2 (08:41→21:19)
[2020-07-09] MEDS: ASPIRIN EC 325 MG TABLET PO (08:42)
[2020-07-09] MEDS: SPIRONOLACTONE 25 MG TABLET 12.5 MG PO (08:42)
[2020-07-09] MEDS: CITALOPRAM 10 MG TABLET 20 MG PO (08:44)
[2020-07-09] MEDS: lisinopriL 5 MG TABLET 2.5 MG PO (08:45)
[2020-07-09] MEDS: AMIODARONE 200 MG TABLET PO (08:45)
--- NOTE | 2020-07-09 11:00 | PC.NURSE ---
Assess- Patient is alert and oriented x3. He denies pain and is calm. Sister into visit earlier. Patient had a breakfast and his blood sugar is 106, no insulin needed. Echo complete, patient is now npo as he is going to have and abdominal ultrasound this afternoon. He is sleeping now. Patient has been using the urinal and just voided 100cc of yellow urine. Napping now.
[2020-07-09] MEDS: INSULIN ASPART 100 UNIT/ML INSULN PEN SUBCUT (11:56)
--- NOTE | 2020-07-09 13:24 | P.PN_ITS ---
Subjective Subjective Date Patient Seen: 07/09/20 Time Patient Seen: 13:24 Interval history: Raman Roldan is a 59 year old male with PMH of DM2, dilated cardiomyopathy with PPM and Bi-V ICD, atrial fibrillation, history of methamphetamine use in remission, current daily marijuana use, CKD III, HTN and HLD Who presented to the emergency room with continued abdominal pain over the past month. He was admitted for further evaluation of continued nausea/vomiting and free fluid in his pelvis. His symptoms are largely improved today after diuresis, although today he has not had anything to eat for abdominal ultrasound and symptoms were primarily after he ate. He denies fevers or chills. Denies chest pain or shortness of breath. His labs worsened today, with WBC increasing to 15.1, INR rising to 2.0, Tbili going from normal to 2.2, and Creatinine increasing to 1.9 from 1.7. Abdominal ultrasound is pending. Exam Vital Signs (past 8 hours): - 07/09/20 08:20 07/09/20 11:30 Temperature 98.1 F 98.5 F Pulse Rate 60 75 Respiratory Rate 20 19 Blood Pressure 133/62 142/70 H Pulse Oximetry 93 94 Oxygen Delivery Method Room Air Oxygen Flow Rate 0 Narrative Exam Narrative: GENERAL APPEARANCE: Well developed, well nourished, in no acute distress. Obese with BMI of 34.2 SKIN: Inspection of the skin reveals no rashes, ulcerations or petechiae. large chronic bump on left frontal area of his head. HEENT: Normocephalic atraumatic (except for skin lesion as noted above), extraocular muscles are intact, oropharynx is clear and mucous membranes are moist, neck is supple without adenopathy NECK: Supple and symmetric. There was no thyroid enlargement, and no tenderness, or masses were felt. CHEST: Normal AP diameter and normal contour without any kyphoscoliosis. LUNGS: Auscultation of the lungs revealed no wheezes, rhonchi, or rales. CARDIOVASCULAR: There was a regular rate and rhythm without any murmurs, gallops, rubs. Peripheral pulses were 2+ and symmetric. ABDOMEN: Soft and nontender with normal bowel sounds. No ascites was noted. MUSCULOSKELETAL: There was no tenderness or effusions noted. Muscle strength and tone were normal. EXTREMITIES: No cyanosis, clubbing or edema. NEUROLOGIC: Alert and oriented x 3. Normal affect. Strength is +5/5 in the Upper Extremities and Lower Extremities Bilaterally. Sensation to touch was normal. Objective Labs Result Diagrams: 07/09/20 04:45 07/09/20 04:45 Labs: Laboratory Results - last 24 hr 07/08/20 07/08/20 07/08/20 11:25 13:37 19:19 WBC RBC Hgb Hct MCV MCH MCHC RDW Plt Count Neut % (Auto) Lymph % (Auto) Garrett % (Auto) Eos % (Auto) Baso % (Auto) Neut # (Auto) Lymph # (Auto) Garrett # (Auto) Eos # (Auto) Baso # (Auto) PT INR Sodium Potassium Chloride Carbon Dioxide BUN Creatinine Estimated GFR BUN/Creatinine Ratio Glucose Calcium Magnesium Total Bilirubin Conjugated Bilirubin Unconjugated Bilirubin AST ALT Alkaline Phosphatase Troponin I 0.032 Total Protein Albumin Globulin Albumin/Globulin Ratio TSH Free T4 Urine Color Yellow Urine Appearance Clear Urine pH 6.5 Ur Specific [place] 1.010 Urine Protein Negative Urine Glucose (UA) Negative Urine Ketones Negative Urine Occult Blood Negative Urine Nitrate Negative Urine Bilirubin Negative Urine Urobilinogen 0.2 Ur Leukocyte Esterase Negative Urine RBC None seen Urine WBC 0-1/hpf Ur Squamous Epith Cells 0-1 /hpf Urine Bacteria None seen Ur Culture Indicated? Cult not indicated SARS-CoV-2 (PCR) Negative 07/09/20 07/09/20 07/09/20 04:45 04:45 04:45 WBC 15.1 H RBC 5.37 Hgb 15.3 Hct 48.6 MCV 90.5 MCH 28.4 MCHC 31.4 RDW 15.1 H Plt Count 208 Neut % (Auto) 62.4 Lymph % (Auto) 22.1 L Garrett % (Auto) 13.6 Eos % (Auto) 0.7 L Baso % (Auto) 1.2 Neut # (Auto) 9500 H Lymph # (Auto) 3300 Garrett # (Auto) 2000 H Eos # (Auto) 100 Baso # (Auto) 200 H PT 22.5 H INR 2.0 H Sodium 133 L Potassium 4.8 Chloride 92 L Carbon Dioxide 31 BUN 43 H Creatinine 1.90 H Estimated GFR 36.6 L BUN/Creatinine Ratio 22.6 H Glucose 137 H Calcium 9.2 Magnesium 2.1 Total Bilirubin 2.2 H Conjugated Bilirubin 0.0 Unconjugated Bilirubin 1.7 H AST 238 H ALT 136 H Alkaline Phosphatase 69 Troponin I Total Protein 7.3 Albumin 4.5 Globulin 2.8 Albumin/Globulin Ratio 1.6 TSH Free T4 Urine Color Urine Appearance Urine pH Ur Specific [place] Urine Protein Urine Glucose (UA) Urine Ketones Urine Occult Blood Urine Nitrate Urine Bilirubin Urine Urobilinogen Ur Leukocyte Esterase Urine RBC Urine WBC Ur Squamous Epith Cells Urine Bacteria Ur Culture Indicated? SARS-CoV-2 (PCR) 07/09/20 04:45 WBC RBC Hgb Hct MCV MCH MCHC RDW Plt Count Neut % (Auto) Lymph % (Auto) Garrett % (Auto) Eos % (Auto) Baso % (Auto) Neut # (Auto) Lymph # (Auto) Garrett # (Auto) Eos # (Auto) Baso # (Auto) PT INR Sodium Potassium Chloride Carbon Dioxide BUN Creatinine Estimated GFR BUN/Creatinine Ratio Glucose Calcium Magnesium Total Bilirubin Conjugated Bilirubin Unconjugated Bilirubin AST ALT Alkaline Phosphatase Troponin I Total Protein Albumin Globulin Albumin/Globulin Ratio TSH 8.76 H Free T4 1.74 Urine Color Urine Appearance Urine pH Ur Specific [place] Urine Protein Urine Glucose (UA) Urine Ketones Urine Occult Blood Urine Nitrate Urine Bilirubin Urine Urobilinogen Ur Leukocyte Esterase Urine RBC Urine WBC Ur Squamous Epith Cells Urine Bacteria Ur Culture Indicated? SARS-CoV-2 (PCR) PFSH Medical History Congestive heart failure Social History household members: family Smoking Status: Never smoker Comment: *PMH: DM2, dilated cardiomyopathy with PPM and Bi-V ICD placement, chronic atrial fibrillation, multisubstance use, CKD III, HTN, HLD PSH: cholecystectomy. Pacemaker and ICD placement. FmHX: no relevant past family history SocHX: never smoker, denies EtOH, daily marijuana user, active, prior meth use last 7 years ago. Current medications to the best of review: amiodarone 200 mg daily. Lantus 30 units daily Novolog 5 units with lunch aspirin 325 mg daily clonazepam 0.5 mg PO BID prn Citalopram 20 mg PO daily Simvastatin 20 mg daily spironolactone 12.5 mg daily lasix 40 mg PO daily carvedilol 12.5 mg BID PO Lisinopril 2.5 mg PO daily. Assessment & Plan Assessment & Plan narrative: Raman Roldan is a 59 year old male with PMH of DM2, dilated cardiomyopathy with PPM and Bi-V ICD, atrial fibrillation, history of methamphetamine use in remission, current daily marijuana use, CKD III, HTn and HLD Who presented to the emergency room with continued abdominal pain over the past month. He was admitted for further evaluation of continued nausea/vomiting and this free fluid in his pelvis. Unclear if his symptoms are related to possible biliary pathology or low cardiac output or volume overload or some combination of these. 1. abdominal pain and pelvic free fluid, acute on chronic, present on admission - UA negative. lipase within normal limits. - Differential is broad. consider ascites from his heart failure heart failure given constellation of early satiety, elevated INR, dyspnea on exertion on admission. infectious etiologies for fluid (diverticulitis, etc) or malignant causes are also possible, although patient is well appearing and non-tender on exam. Also consider cyclic vomiting syndrome given marijuana use or gastroparesis. Given rising INR today and LFTs, will check abdominal ultrasound to evaluate for possible biliary source. Could also be ischemia from low flow given the patient's EF noted at 10-15% on TTE today. - will hold on further diuresis pending repeat abdominal US imaging at this time. TTE does show worsening EF and elevated pressures as noted above but with rising LFTs and creatinine is is unclear if this was helping or not. - unclear if this fluid collection noted on CT imaging is related to symptoms. It was present on prior imaging noted in 03/2020 but was smaller at that time. Suspect ascites from hepatic congestion at this time in addition to above diagnoses. 2. DM2, chronic - continue home lantus and sliding scale correctional 3. Non-ischemic cardiomyopathy, acute on chronic systolic heart failure, present on admission - started initially with IV lasix 40 mg IV BID to see if improvement in symptoms, which did help, however worsening creatinine and LFTs which goes against hepatic congestion. ProBNP of 2650 on admission. - TTE showed an EF of 10-15%, worsened from reported prior of 30-35% (cannot tell from report when this was done and report not available here). No significant valvular pathologies. - suspected initially JETHRO and hepatic congestion from heart failure as diuscus sed above, however given worsening labs (creatinine and LFTs) will hold diuresis as it is possible this is due to low cardiac output. Consider cardiology consultation if abdominal ultrasound is negative for biliary source. - strict Is and Os. Net negative 1.8 L since admission. 4. history of PPM placement, atrial fibrillation - placed 03/2020 at [facility]. EKG shows paced rhythm. No complaints of chest pain and troponin is within normal limits. Telemetry discontinued. 5. polystubstance use with history of methamphetamine use and current marijuana use - counseled on marijuana cessation as noted above. 6. JETHRO on CKD III, present on admission - unclear is this is from volume overload at this time or due to low output from his heart failure. Consider cardiology consultation as noted above. C reatinine was noted to be 1.2 in 01/2020, Not currently clear what his usual baseline creatinine is given lack of available records. 7. HTN, chronic - continue home medications 8. HLD, chronic. - continue home medications. 9. Subclinical hypothyroidism, present on admission - TSH 8.76 with normal free t4. Recommend repeat testing with PCP. Code: discussed with patient and surrogate decision maker, his son at bedside. Previously DNR with hospice, however at this time wants to be full code. DVT: Heparin SQ Dispo: admitted under observation status, change to inpatient today Quality VTE Deep Vein Thrombosis/Pulmonary Embolism Present on Admission: No MIPS - Admit Advanced Care Plan / Current Medications Measures: #47 ? Advanced Care Plan Clinician documentation instruction: document at admission. [x] I confirmed that the patient's Advance Care Plan is present, code status is documented, or surrogate decision maker is listed in the patient?s medical record. [SATISFIES MIPS PERFORMANCE] If Yes, Stop Here [] The patient?s Advance Care plan is not present because: (select) [MIPS PERFORMANCE EXCEPTION/EXCLUSION] [] I confirmed today that the patient does not wish or was not able to name a surrogate decision maker or provide an Advance Care Plan. [] Hospice care is currently being provided or has been provided this calendar year [] I did NOT confirm today the presence of an Advance Care Plan or surrogate decision maker documented within the patient's medical record. [DOES NOT SATISFY MIPS PERFORMANCE] #130 - Documentation of Current Medications in the Medical Record Clinician documentation instruction: use macro the first time you see a patient. [x] I have utilized all available immediate resources to obtain, update, or review the patient?s current medications. [SATISFIES MIPS PERFORMANCE] If Yes, Stop Here [] The patient is not eligible for medication reconciliation; the patient is in an emergent medical situation where delaying treatment would jeopardize the patient?s health. [MIPS PERFORMANCE EXCEPTION/EXCLUSION] [] I did NOT confirm, update or review the patient's current list of medications today. [DOES NOT SATISFY MIPS PERFORMANCE] MIPS - CL Central Venous Catheter Placement Measure: #76 ? Prevention of Central Venous Catheter (CVC) ? Related Bloodstream Infection Clinician documentation instruction: use macro every time you place a central line. [] All elements of Maximal Sterile Barrier Technique, including hand hygiene, skin prep, and sterile ultrasound technique (if used) were followed. [SATISFIES MIPS PERFORMANCE] If Yes, Stop Here [] If ?No?, the medical reason all elements were NOT used for medical reason [] (ex. emergent condition). [] Maximal Sterile Barrier Technique was not followed, no reason provided [DOES NOT SATISFY MIPS PERFORMANCE] MIPS - DC Heart Failure Measures: #5 - Heart Failure (HF): Angiotensin-Converting Enzyme (JAVY) Inhibitor or Angiotensin Receptor Dorothy (ARB) Therapy for Left Ventricular Systolic Dysfunction (LVSD) and #8 - Heart Failure (HF): Beta-Dorothy Therapy for Left Ventricular Systolic Dysfunction (LVSD) Clinician documentation instruction: use macro at every CHF discharge. [x] The patient has current or prior documentation of left ventricular ejection fraction (LVEF) less than 40%, or moderate or severely depressed left ventricular systolic function. Answer both: [SATISFIES MIPS PERFORMANCE] [x] The patient was prescribed or already taking an Angiotensin-Converting Enzyme (JAVY) Inhibitor, or Angiotensin Receptor Dorothy (ARB). [x] The patient was prescribed or already taking a beta-dorothy. If Yes to Both, Stop Here [] Patient not prescribed/taking: [MIPS PERFORMANCE EXCEPTION/EXCLUSION] [] JAVY or ARB for medical/patient/system reason(s) including [] (ex. allergy, intolerance, contraindication) [] Beta-dorothy for medical/patient/system reason(s) including [] (ex. allergy, intolerance, contraindication) [] Patient not prescribed/taking: [DOES NOT SATISFY MIPS PERFORMANCE] [] JAVY or ARB, no reason given [] Beta-dorothy, no reason given
--- NOTE | 2020-07-09 14:59 | CM.DANOTE ---
DCP/Assessment: Reviewed chart. Patient is a 59yr old male with abdominal pain. Patient with h/o cardiomyopathy related to previous substance abuse (approximately 8yrs ago). PCP listed is Kenzie Grigsby. Primary payor is 1)Medicaid. Spoke with Dr. Santiago this afternoon, he reports patient currently with EF of 10-15%. Treatment options unclear at this time. Met with patient explained CM/SW role. Paitent sitting in recliner at time of visit. Patient alert and oriented x3. Patient reports that he resides with his son/Raman. 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 Patient denies currently using any illegal substances. Patient does report that he smokes marijuana everyday. Patient indicates that marijuana helps with anxiety. Patient reports that 3 months ago he was on Hospice services. Patient reports he was on those services for about 2 months and then was discharged. Patient indicates that he does not feel like hospice did much for him other than dope me up. Patient currently full code? Current d/c plan is for patient to return home when medically stable. Patient uses electric scooter when out and about. Patient can ambulate in the residence short distances without DME. P: POC unknown at this time. Patient plans to d/c home when medically stable. ANGELA Good Discharge Planning/Care Management CM Discharge Assessment Start: 07/09/20 14:54 Freq: Status: Active Protocol: Document 07/09/20 14:56 KJS (Rec: 07/09/20 14:59 KJS [id number]) Discharge Planning Assessment Assigned Aluminum Pool Installer ANGELA Good Contact Information Raman Roldan (son) ph# [phone] Advance Directives? No History Provided By Patient,Medical Record Prior Living Arrangements Apartment/Condo Household Members family Type of transporation used prior to Relies on Others admit Independent with ADL's No: Uses electric w/c for long distances. Is patient alert and oriented? Yes Caregiver for Another No Comment Pending needs Discharge Plan Home Transportation Arrangement Family to provide transport. Whiteboard Updated in Patient Room with Yes name and ext. # of Aluminum Pool Installer Review Status In Process Next Review Type Continued Stay Review
[2020-07-09] MEDS: INSULIN GLARGINE 100 UNIT/ML 3ML PEN 20 UNIT SUBCUT (21:22)
--- NOTE | 2020-07-09 21:31 | PC.NURSE ---
Pt up independently in room all evening. Med as per orders for discomfort w/good relief. HL intact/patent. Call light w/in reach, pt calls appropriately for needs. Continue w/plan of care.
[2020-07-10] VITALS (27 sets, daily range): BP systolic 100–128; BP diastolic 62–97; PULSE 60–80; RESP 18–34; TEMP 36–36.7; O2SAT 93–99
--- NOTE | 2020-07-10 01:10 | PC.NURSE ---
patient is alert and oriented. Breath sounds CTA with RA sat of 96% and denies feeling SOB. HRR. Denies nausea. BT present and abdomen is soft but large. Denies abdominal pain tonight. Denies dysuria, frequency or urgency with urination. Is able to turn self in bed. Provided SBA when out of bed for safety. States he is feeling better as is able to sleep. Refusing SCD's so reminded to ankle wave when awake. Fall risk score is moderate and bed alarm is activated.
[2020-07-10 05:33] LABS: INR 2.1 (0.9-1.3); Prothrombin Time 23.4 SECONDS (10.1-12.7)
[2020-07-10 05:34] LABS: Add Manual Diff / Slide Review NO; Basophils Absolute Auto 100 /uL (0-100); Basophils Percent Auto 0.8 % (0-2); Eosinophils Absolute Auto 100 /uL (0-450); Eosinophils Percent Auto 1.1 % (2-4); Hematocrit 43.9 % (41-53); Hemoglobin 14.1 g/dL (13.5-17.5); Lymphocytes Absolute Auto 2900 /uL (1100-4500); Mean Corpuscular HGB Conc 32.1 % (30-36); Mean Corpuscular Hemoglobin 28.5 PG (26-34); Mean Corpuscular Volume 88.6 fL (80-100); Monocytes Absolute Auto 1600 /uL (0-900); Neutrophils Absolute Auto 6900 /uL (1500-7000); Neutrophils Percent Auto 59.1 % (50-75); Platelet Count 178 X10^3/uL (150-400); Red Blood Cell Count 4.95 X10^6/uL (4.5-5.9); Red Cell Distribution Width 15.5 % (11.6-14.8); White Blood Cell Count 11.6 X10^3/uL (4.5-11.0)
[2020-07-10 06:08] LABS: Alanine Aminotransferase 537 IU/L (<50); Albumin 3.9 g/dL (3.5-5.0); Albumin Globulin Ratio 1.5 (1.0-2.8); Alkaline Phosphatase 66 U/L (38-126); Aspartate Aminotransferase 670 IU/L (17-59); BUN Creatinine Ratio 27.3 (6-22); Bilirubin Total 2.1 mg/dL (0.2-1.3); Bilirubin Unconjugated 1.5 mg/dL (0.0-1.1); Blood Urea Nitrogen 51 mg/dL (9-20); Carbon Dioxide 30 mmol/L (22-32); Chloride 93 mmol/L (98-107); Estimated Glomerular Filt Rate 37.3 mL/min (>60); Globulin 2.6 g/dL (1.7-4.1); Glucose 109 mg/dL (70-100); HEMOLYSIS < 15 (0-50); Magnesium 1.9 mg/dL (1.6-2.3); Potassium 4.1 mmol/L (3.4-5.1); Sodium 131 mmol/L (137-145); Total Protein 6.5 g/dL (6.3-8.2)
[2020-07-10] MEDS: PANTOPRAZOLE 20 MG TABLET PO (06:10)
[2020-07-10 09:39] LABS: Hepatitis B Surface Antigen NEGATIVE s/c (NEGATIVE)
[2020-07-10] MEDS: SODIUM CHLORIDE 0.9% FLUSH 10 ML IV ×3 (09:52→20:07)
[2020-07-10] MEDS: SPIRONOLACTONE 25 MG TABLET 12.5 MG PO (09:52)
[2020-07-10] MEDS: HEPARIN 5,000 UNIT/ML VIAL 5000 UNIT SUBCUT ×2 (09:52→20:05)
[2020-07-10] MEDS: AMIODARONE 200 MG TABLET PO (09:52)
[2020-07-10] MEDS: ASPIRIN EC 325 MG TABLET PO (09:52)
[2020-07-10] MEDS: CITALOPRAM 10 MG TABLET 20 MG PO (09:52)
[2020-07-10] MEDS: lisinopriL 5 MG TABLET 2.5 MG PO (09:53)
[2020-07-10] MEDS: carvediloL 12.5 MG TABLET PO ×2 (09:55→20:04)
[2020-07-10 09:56] LABS: Hep C Virus Ab w/Reflex Quant NEGATIVE s/c (NEGATIVE)
--- NOTE | 2020-07-10 10:10 | P.DS_ITS ---
History of Present Illness History of Present Illness Date Patient Seen: 07/10/20 Time Patient Seen: 10:10 Chief complaint: Severe stomch pain Narrative: Raman Roldan is a 59 year old male with PMH of DM2, dilated cardiomyopathy with PPM and Bi-V ICD, atrial fibrillation, history of methamphetamine use in remission, current daily marijuana use, CKD III, HTn and HLD Who presented to the emergency room with continued abdominal pain over the past month. patient states for about the past month he has had suprapubic cramping like abdominal pain with radiation to both sides. This started of mild and he sought care with his primary care doctor, records were obtained and this showed that she thought that the patient may have diverticulitis but was unable to get a CT scan. His symptoms were reportedly improving with a low-fiber diet and no further evaluation was sought at that time but urged to go to the ER if pain continued. he sometimes gets epigastric pain that feels like a burning sensation as well. He has early satiety and over the past two weeks has not been able to eat without vomiting. He denies dark stools or BRBPR, there is no hematemesis. He denies fevers, or chills. He denies any chest pain, palpitations. He has felt more dyspneic on exertion over the past month, with him being able to a approximately walk about 15 ft before he gets short of breath. The patient states that he has been taking his medications, although he has thrown at at times after taking them. He does report an increase in the number of showers he takes as this does sometimes make him feel better. In the emergency room, his vital signs were unremarkable. Laboratory evaluation showed a mild leukocytosis with a WBC of 11.1, the remainder of his CBC was unremarkable. Coagulation study showed an INR of 1.7 (1.2 back in 01/2020). Chemistries revealed a creatinine of 1.7, although he does have a history of CKD but patient was in [facility] at the end of march and his creatinine was 1.25 per that documentation in 01/2020. Troponin was within normal limits at 0.029. ProBNP was elevated at 2650. EKG with paced rhythm. Chest x-ray showed cardiomegaly without acute pulmonary disease. CT scan showed a focus of free fluid within the lower pelvis tracking into the right lower quadrant that is noted to be 11.4 cm x 7.9 cm transversely. Patient had a CT scan back in 2019 that was reviewed with the radiologist for comparison. This fluid was present at that time, but to a lesser extent. This area is not amenable for drainage according to the radiologist. Patient was admitted for further evaluation. Discharge Providers Provider Date of admission: 07/09/20 15:50 Discharge Date: 07/10/20 Primary care physician: Kenzie Grigsby DO Discharge provider: Giovanny Santiago DO Summary Hospital Course Discharge Diagnosis: Please see hospital course by problem list. Hospital Course: Raman Roldan is a 59 year old male with PMH of DM2, dilated cardiomyopathy with PPM and Bi-V ICD, atrial fibrillation, history of methamphetamine use in remission, current daily marijuana use, CKD III, HTN and HLD Who presented to the emergency room with continued abdominal pain over the past month. He was admitted for further evaluation of continued nausea/vomiting and free fluid in his pelvis. Initially symptoms were presumed secondary to volume overload given clinical picture, and his symptoms are largely improved after diuresis. However after 2 doses of IV lasix, 40 mg each his liver enzymes started rising, along with bilirubin and creatinine. Lasix was subsequently held with stabilization of bilirubin and creatinine, but his AST and ALT have both risen to above 500 from normal two days prior. TTE showed an EF of 10-15%. Discussed with Dr. Roman whom recommended transfer to [facility] for cardiology evaluation and recommended initiation of dobutamine. 1. abdominal pain and pelvic free fluid, acute on chronic, present on admission - UA negative. lipase within normal limits. - Differential is broad, although I suspect this was related to hepatic congestion from his heart failure given constellation of admission symptoms. Abdominal ultrasound showed hepatomegaly without biliary dilitation. Another possibility for his symptoms on admission is cyclic vomiting syndrome given daily marijuana use. - Patient's symptoms improved with 2 doses of 40 mg IV lasix, however this was held for worsening creatinine and liver enzymes. TTE does show worsening EF as noted below. - unclear if this fluid collection noted on CT imaging is related to symptoms. It was present on prior imaging noted in 03/2020 but was smaller at that time. Suspect ascites from hepatic congestion at this time as noted above. Less likely infectious. 2. DM2, chronic - continued home lantus and sliding scale correctional 3. Non-ischemic cardiomyopathy, acute on chronic systolic heart failure, present on admission - started initially with IV lasix 40 mg IV BID, which did help with symptoms, however worsening creatinine and LFTs as noted above after 2 doses. ProBNP of 2650 on admission. - TTE showed an EF of 10-15%, worsened from reported prior of 30-35% (cannot tell from report when this was done and report not available here). No significant valvular pathologies. - suspected initially JETHRO and hepatic congestion from heart failure as diuscussed above, however given worsening labs (creatinine and LFTs) diuresis was held. - strict Is and Os. Net negative 1.8 L on HD#1, positive 1L on HD#2, net negative 800 cc over admission. - Discussed with Dr. Roman whom recommended initiating dobutamine at 5 mcg and transfer to [facility] for cardiology evaluation and dobutamine for inotropy in setting of low output heart failure leading to multiorgan injury. -patient continued on carvedilol 12.5 mg BID, lisinopril 2.5 mg daily, aldactone 12.5 mg daily. 4. history of PPM placement, atrial fibrillation - placed 03/2020 at [facility]. EKG shows paced rhythm. No complaints of chest pain and troponin is within normal limits. Telemetry discontinued. - continued home amiodarone 200 mg daily. 5. polystubstance use with history of methamphetamine use and current marijuana use - counseled on marijuana cessation as noted above. 6. JETHRO on CKD III, present on admission - Creatinine was noted to be 1.2 in 01/2020, Not currently clear what his usual baseline creatinine is given lack of available records. Creatinine of 1.7 worsened to 1.9 after diuresis as noted above. Diuresis held with stabliization of creatinine. Cardiology recommended inotropy as noted above with dobutamine. 7. HTN, chronic - continue home medications 8. HLD, chronic. - continue home medications. 9. Subclinical hypothyroidism, present on admission - TSH 8.76 with normal free t4. Recommend repeat testing with PCP. 10. Hepatopathy, acute, not-present on admission - suspect secondary to heart failure as noted above. Abdominal ultrasound showing hepatomegaly, no acute infectious etiologies. Hepatitis panel sent this AM, hep C Ab negative. Hepatitis B surface antigen negative. HepB surface ab and core ab pending. Hep A Ab pending. Code: discussed with patient and surrogate decision maker, his son at bedside in the ER. Previously DNR with hospice, however at this time wants to be full code. DVT: Heparin SQ Dispo: admitted under observation status, changed to inpatient, now ICU for dobutamine. I spent 35 minutes providing critical care management this patient. This excludes time spent in performing separately billed procedures. Time Spent with Patient Time spent: Greater than 30 minutes Exam Vital Signs (past 8 hours): - 07/10/20 04:26 07/10/20 08:00 07/10/20 09:55 Temperature 96.8 F L 97.2 F L Pulse Rate 74 80 76 Respiratory Rate 18 18 Blood Pressure 116/74 118/97 H 127/78 Pulse Oximetry 94 93 Oxygen Delivery Method Room Air Oxygen Flow Rate 0 Narrative Exam Narrative: GENERAL APPEARANCE: Well developed, well nourished, in no acute distress. Obese with BMI of 34.2 SKIN: Inspection of the skin reveals no rashes, ulcerations or petechiae. medium sized chronic bump on left frontal area of his head. HEENT: Normocephalic atraumatic (except for skin lesion as noted above), extraocular muscles are intact, oropharynx is clear and mucous membranes are moist, neck is supple without adenopathy NECK: Supple and symmetric. There was no thyroid enlargement, and no tenderness, or masses were felt. CHEST: Normal AP diameter and normal contour without any kyphoscoliosis. LUNGS: Auscultation of the lungs revealed no wheezes, rhonchi, or rales. CARDIOVASCULAR: There was a regular rate and rhythm without any murmurs, gallops, rubs. Peripheral pulses were 2+ and symmetric. ABDOMEN: Soft and nontender with normal bowel sounds. No ascites was noted. MUSCULOSKELETAL: There was no tenderness or effusions noted. Muscle strength and tone were normal. EXTREMITIES: No cyanosis, clubbing or edema. NEUROLOGIC: Alert and oriented x 3. Normal affect. Strength is +5/5 in the Upper Extremities and Lower Extremities Bilaterally. Sensation to touch was normal. Objective Labs Result Diagrams: 07/10/20 04:55 07/10/20 04:55 Labs: Laboratory Results - last 24 hr 07/10/20 07/10/20 07/10/20 04:55 04:55 04:55 WBC 11.6 H RBC 4.95 Hgb 14.1 Hct 43.9 MCV 88.6 MCH 28.5 MCHC 32.1 RDW 15.5 H Plt Count 178 Neut % (Auto) 59.1 Lymph % (Auto) 25.0 [place] % (Auto) 14.0 Eos % (Auto) 1.1 L Baso % (Auto) 0.8 Neut # (Auto) 6900 Lymph # (Auto) 2900 [place] # (Auto) 1600 H Eos # (Auto) 100 Baso # (Auto) 100 PT 23.4 H INR 2.1 H Sodium 131 L Potassium 4.1 Chloride 93 L Carbon Dioxide 30 BUN 51 H Creatinine 1.87 H Estimated GFR 37.3 L BUN/Creatinine Ratio 27.3 H Glucose 109 H Calcium 9.0 Magnesium 1.9 Total Bilirubin 2.1 H Conjugated Bilirubin 0.0 Unconjugated Bilirubin 1.5 H AST 670 H ALT 537 H Alkaline Phosphatase 66 Total Protein 6.5 Albumin 3.9 Globulin 2.6 Albumin/Globulin Ratio 1.5 Hep Bs Antigen Hepatitis C Antibody 07/10/20 08:30 WBC RBC Hgb Hct MCV MCH MCHC RDW Plt Count Neut % (Auto) Lymph % (Auto) [place] % (Auto) Eos % (Auto) Baso % (Auto) Neut # (Auto) Lymph # (Auto) [place] # (Auto) Eos # (Auto) Baso # (Auto) PT INR Sodium Potassium Chloride Carbon Dioxide BUN Creatinine Estimated GFR BUN/Creatinine Ratio Glucose Calcium Magnesium Total Bilirubin Conjugated Bilirubin Unconjugated Bilirubin AST ALT Alkaline Phosphatase Total Protein Albumin Globulin Albumin/Globulin Ratio Hep Bs Antigen Negative Hepatitis C Antibody Negative [facility] Medical History Congestive heart failure Social History household members: family Smoking Status: Never smoker Comment: *PMH: DM2, dilated cardiomyopathy with PPM and Bi-V ICD placement, chronic atrial fibrillation, multisubstance use, CKD III, HTN, HLD PSH: cholecystectomy. Pacemaker and ICD placement. FmHX: no relevant past family history SocHX: never smoker, denies EtOH, daily marijuana user, active, prior meth use last 7 years ago. Current medications to the best of review: amiodarone 200 mg daily. Lantus 30 units daily Novolog 5 units with lunch aspirin 325 mg daily clonazepam 0.5 mg PO BID prn Citalopram 20 mg PO daily Simvastatin 20 mg daily spironolactone 12.5 mg daily lasix 40 mg PO daily carvedilol 12.5 mg BID PO Lisinopril 2.5 mg PO daily. Discharge Plan Discharge Plan Disposition: [facility] Discharge Health Status Health Concerns: acute on chronic systolic heart failure Discharge Data Primary Care Provider: Kenzie Grigsby VTE Deep Vein Thrombosis/Pulmonary Embolism Present on Admission: No MIPS - Admit Advanced Care Plan / Current Medications Measures: #47 ? Advanced Care Plan Clinician documentation instruction: document at admission. [x] I confirmed that the patient's Advance Care Plan is present, code status is documented, or surrogate decision maker is listed in the patient?s medical record. [SATISFIES MIPS PERFORMANCE] If Yes, Stop Here [] The patient?s Advance Care plan is not present because: (select) [MIPS PERFORMANCE EXCEPTION/EXCLUSION] [] I confirmed today that the patient does not wish or was not able to name a surrogate decision maker or provide an Advance Care Plan. [] Hospice care is currently being provided or has been provided this calendar year [] I did NOT confirm today the presence of an Advance Care Plan or surrogate decision maker documented within the patient's medical record. [DOES NOT SATISFY MIPS PERFORMANCE] #130 - Documentation of Current Medications in the Medical Record Clinician documentation instruction: use macro the first time you see a patient. [x] I have utilized all available immediate resources to obtain, update, or review the patient?s current medications. [SATISFIES MIPS PERFORMANCE] If Yes, Stop Here [] The patient is not eligible for medication reconciliation; the patient is in an emergent medical situation where delaying treatment would jeopardize the patient?s health. [MIPS PERFORMANCE EXCEPTION/EXCLUSION] [] I did NOT confirm, update or review the patient's current list of medications today. [DOES NOT SATISFY MIPS PERFORMANCE] MIPS - CL Central Venous Catheter Placement Measure: #76 ? Prevention of Central Venous Catheter (CVC) ? Related Bloodstream Infection Clinician documentation instruction: use macro every time you place a central line. [] All elements of Maximal Sterile Barrier Technique, including hand hygiene, skin prep, and sterile ultrasound technique (if used) were followed. [SATISFIES MIPS PERFORMANCE] If Yes, Stop Here [] If ?No?, the medical reason all elements were NOT used for medical reason [] (ex. emergent condition). [] Maximal Sterile Barrier Technique was not followed, no reason provided [DOES NOT SATISFY MIPS PERFORMANCE] MIPS - DC Heart Failure Measures: #5 - Heart Failure (HF): Angiotensin-Converting Enzyme (JAVY) Inhibitor or Angiotensin Receptor Dorothy (ARB) Therapy for Left Samir tricular Systolic Dysfunction (LVSD) and #8 - Heart Failure (HF): Beta-Dorothy Therapy for Left Ventricular Systolic Dysfunction (LVSD) Clinician documentation instruction: use macro at every CHF discharge. [x] The patient has current or prior documentation of left ventricular ejection fraction (LVEF) less than 40%, or moderate or severely depressed left ventricular systolic function. Answer both: [SATISFIES MIPS PERFORMANCE] [x] The patient was prescribed or already taking an Angiotensin-Converting Enzyme (JAVY) Inhibitor, or Angiotensin Receptor Dorothy (ARB). [x] The patient was prescribed or already taking a beta-dorothy. If Yes to Both, Stop Here [] Patient not prescribed/taking: [MIPS PERFORMANCE EXCEPTION/EXCLUSION] [] JAVY or ARB for medical/patient/system reason(s) including [] (ex. allergy, intolerance, contraindication) [] Beta-dorothy for medical/patient/system reason(s) including [] (ex. allergy, intolerance, contraindication) [] Patient not prescribed/taking: [DOES NOT SATISFY MIPS PERFORMANCE] [] JAVY or ARB, no reason given [] Beta-dorothy, no reason given
--- NOTE | 2020-07-10 10:15 | CM.DPNOTE ---
DC Note Met w/patient this morning, reviewed DCP and suggested HH ? Patient stated he didn't feel he needed it and said he expected to return home w/assist from his son as needed. Then heard from Dr Santiago- patient is now expected to transfer to [facility] for further cadio w/u JW
--- NOTE | 2020-07-10 10:25 | PC.NURSE ---
Order to transfer patient to ICU to start doputamine gtt while waiting for transfer for cardiology consult. Patient updated, feeling anxious about going over to [facility]. Report given to Stacey RN's in ICU and patient moved to room 227.
[2020-07-10] MEDS: DOBUTAMINE 250 MG IN D5W 250 MG/250 ML IV.SOLN 33.339 MG IV ×2 (10:45→17:52)
[2020-07-10] MEDS: LORazepam 2 MG/ML INJ 0.5 MG IV (10:56)
--- NOTE | 2020-07-10 11:36 | PC.NURSE ---
received patient from GERMAINE Pacheco from room 223. Patient to be placed on a dobuatmine drip for inotropic diuresis. Patient denies pain or shortness of breath. placed on 2LNC, SaO2 98%. No complaints at this time.
[2020-07-10] MEDS: INSULIN ASPART 100 UNIT/ML INSULN PEN SUBCUT ×2 (12:13→16:52)
[2020-07-10] MEDS: DOCUSATE 100 MG CAPSULE PO ×2 (16:51→20:04)
[2020-07-10] MEDS: OXYCODONE IR 5 MG TABLET PO (17:48)
[2020-07-10] MEDS: CALCIUM CARBONATE 500 MG TAB 1000 MG PO (17:48)
--- NOTE | 2020-07-10 18:26 | PC.NURSE ---
Pt Awake and oriented to self and situation, not to day, date, year. 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 Is aware of place and current events. Complains of 7-8/10 abdominal pain, medicated with Oxycodone 5mg with stated relief to 610. Dobutamine in progress to R hand @ 5mcg/kg/min, site inspected and no redness of swelling noted. Preparing pt for transfer to [facility] this PM
[2020-07-10] MEDS: clonazePAM 0.5 MG TABLET PO (18:54)
[2020-07-10] MEDS: INSULIN GLARGINE 100 UNIT/ML 3ML PEN 20 UNIT SUBCUT (20:05)
--- NOTE | 2020-07-10 20:31 | PC.NURSE ---
Report called to Scarlet HERRON @ [facility], Pt transported via EMS with dobutamine in progress.
[2020-07-11 01:17] LABS: Hepatitis A Antibody Total Negative (Negative)
[2020-07-11 02:13] LABS: Hepatitis B Core Antibody Negative (Negative)
[2020-07-11 03:15] LABS: Hepatitis B Surf Ab Qualitativ Non Reactive (.)
== END 2020-07-10 20:33 | disposition short-term general hospital (02) | DRG 291 ==
LOC: ED 10:59 → AC 15:57 → ICU 07-10 10:25
PROVIDERS: Admitting Provider Internal Medicine; Emergency Provider Emergency Medicine; PCP Family Medicine; Referring Provider Emergency Medicine; Visit Provider Internal Medicine
DX: I13.0 Hypertensive heart and chronic kidney disease with heart failure and stage 1 through stage 4 chronic kidney disease, or unspecified chronic kidney disease (principal); I50.23 Acute on chronic systolic (congestive) heart failure; N17.9 Acute kidney failure, unspecified; R18.8 Other ascites; I48.20 Chronic atrial fibrillation, unspecified; N18.30 Chronic kidney disease, stage 3 unspecified; I42.0 Dilated cardiomyopathy; E11.22 Type 2 diabetes mellitus with diabetic chronic kidney disease; Z95.810 Presence of automatic (implantable) cardiac defibrillator; E78.5 Hyperlipidemia, unspecified; Z79.4 Long term (current) use of insulin; F12.90 Cannabis use, unspecified, uncomplicated; F15.21 Other stimulant dependence, in remission; K76.89 Other specified diseases of liver
CPT/HCPCS: 36415; 71045; 74177; 76700; 80048; 80053; 80076; 81001; 82962; 83690; 83735; 83880; 84439; 84443; 84484; 85025; 85610; 85730; 86704; 86706; 86708; 86803; 87340; 87635; 93005; 96374; 96375; 99285; G0378; C8929; J1644; J1940; J2060; J2270; J2405; J2765; Q9957; Q9967

== ENCOUNTER → 2020-08-12 10:04 | Outpatient (CLI) | payer MEDICAID, SELFPAY ==
[2020-07-08 17:40] VITALS: BMI 34.2
[2020-08-12 11:20] LABS: BUN Creatinine Ratio 20.8 (6-22); Blood Urea Nitrogen 35 mg/dL (9-20); Calcium 9.1 mg/dL (8.4-10.2); Carbon Dioxide 29 mmol/L (22-32); Chloride 100 mmol/L (98-107); Estimated Glomerular Filt Rate 42.2 mL/min (>60); Glucose 184 mg/dL (70-100); HEMOLYSIS < 15 (0-50); Potassium 4.4 mmol/L (3.4-5.1); Sodium 139 mmol/L (137-145)
== END ==
PROVIDERS: PCP Family Medicine; Referring Provider Nurse Practitioner; Visit Provider Nurse Practitioner
DX: I42.8 Other cardiomyopathies (principal)
CPT/HCPCS: 36415; 80048

== ENCOUNTER 2021-01-18 16:37 | Inpatient (IN) | payer MEDICAID, SELFPAY ==
[2020-07-08 17:40] VITALS: BMI 34.2
[2021-01-18] VITALS (33 sets, daily range): BP systolic 107–126; BP diastolic 75–93; PULSE 68–97; RESP 19–37; TEMP 36.1–36.2; O2SAT 93–98; BMI 34.8
--- NOTE | 2021-01-18 17:09 | DI.RAD.S_ITS ---
PROCEDURE: XR CHEST 1V INDICATIONS: chest pain TECHNIQUE: One view of the chest was acquired. COMPARISON: [facility], CT, CT CHEST ABDOMEN PELVIS WITHOUT CONTRAST, 01/18/2020, 19:45. [facility], CR, XR CHEST 1 VIEW, 01/18/2020, 15:17. [facility], CR, CHEST 2VW, 05/03/2013, 8:02. [facility], CR, XR CHEST 1V, 07/08/2020, 12:03. FINDINGS: Surgical changes and devices: An AICD is seen. The leads are seen in stable positions. Lungs and pleura: On this semiupright portable chest examination, no large pneumothorax or large pleural effusions are seen. No focal infiltrates are seen. Low lung volumes are noted. This causes a crowded appearance to the lung markings and limits evaluation. Mediastinum: Mediastinal contours appear normal. Heart size is moderately enlarged. Bones and chest wall: No suspicious bony lesions. Age-appropriate bony degenerative changes are seen. Overlying soft tissues appear unremarkable. IMPRESSION: Moderate cardiomegaly. Clear lungs. Postoperative and degenerative changes are seen. Dictated by: Doc Chowdary M.D. on 01/18/2021 at 16:25 Approved by: Doc Chowdary M.D. on 01/18/2021 at 16:26
[2021-01-18 17:25] LABS: Add Manual Diff / Slide Review NO; Basophils Absolute Auto 100 /uL (0-100); Basophils Percent Auto 0.9 % (0-2); Eosinophils Absolute Auto 100 /uL (0-450); Eosinophils Percent Auto 0.8 % (2-4); Hematocrit 46.7 % (41-53); Lymphocytes Absolute Auto 3100 /uL (1100-4500); Lymphocytes Percent Auto 25.4 % (25-40); Mean Corpuscular HGB Conc 32.2 % (30-36); Mean Corpuscular Hemoglobin 29.9 PG (26-34); Mean Corpuscular Volume 92.7 fL (80-100); Monocytes Absolute Auto 1600 /uL (0-900); Monocytes Percent Auto 13.1 % (3-14); Neutrophils Absolute Auto 7200 /uL (1500-7000); Neutrophils Percent Auto 59.8 % (50-75); Platelet Count 193 X10^3/uL (150-400); Red Blood Cell Count 5.04 X10^6/uL (4.5-5.9); Red Cell Distribution Width 14.7 % (11.6-14.8); White Blood Cell Count 12.1 X10^3/uL (4.5-11.0)
--- NOTE | 2021-01-18 17:25 | ED_ITS ---
HPI - Chest Pain General Chief Complaint: Chest Pain Stated Complaint: SOB HARD TIME SLEEPING NO APPETITE Time Seen by Provider: 01/18/21 17:23 Source: patient and family Mode of arrival: Wheelchair Limitations: no limitations History of Present Illness HPI narrative: Patient is a 60-year-old male with history of congestive heart failure with an ICD an EF of about 10-15% presenting with 5 days of increasing chest tightness and shortness of breath. He says he is becoming more short of breath with exertion than normal. He denies any increased swelling in his legs or abdomen. He says previously been in congestive heart failure, not sure if he is in it now. He has actually had some abdominal swelling but no lower extremity swelling. He denies any cough or fever. He is not on any anticoagulation. He was previously in hospice but is no longer in hospice. Related Data Home Medications Medication Instructions Recorded Confirmed Novolog Flexpen U-100 Insulin 5 unit SUBCUT QNOON 07/08/20 07/08/20 amiodarone 200 mg tablet 200 mg PO DAILY 07/08/20 07/08/20 aspirin 325 mg PO DAILY 07/08/20 07/08/20 citalopram 20 mg tablet 20 mg PO DAILY 07/08/20 07/08/20 clonazepam 0.5 mg tablet 0.5 mg PO BID PRN 07/08/20 07/08/20 furosemide 40 mg tablet 40 mg PO DAILY 07/08/20 07/08/20 insulin glargine 100 unit/mL (3 30 unit SUBCUT DAILY 07/08/20 07/08/20 mL) subcutaneous pen (Lantus Solostar U-100 Insulin) lisinopril 2.5 mg tablet 2.5 mg PO DAILY 07/08/20 07/08/20 spironolactone 25 mg tablet 12.5 mg PO DAILY 07/08/20 07/08/20 carvedilol 12.5 mg tablet 12.5 mg PO BID 07/09/20 07/09/20 Allergies Allergy/AdvReac Type Severity Reaction Status Date / Time metformin Allergy Intermediate Vomiting Verified 01/18/21 17:09 Review of Systems Review of Systems Narrative: GENERAL: Denies chills, fatigue, malaise, fever, sweats, travel HEENT: Denies sinus pain, ear pain, sore throat, difficulty swallowing, neck pain RESPIRATORY: See HPI CARDIOVASCULAR: Denies chest pain, palpitations, orthopnea, edema GASTROINTESTINAL: Denies nausea, vomiting, abdominal pain, diarrhea, constipation, melena. : Denies dysuria, frequency, incontinence, hematuria, urinary retention, flank pain. MUSCULOSKELETAL: Denies weakness, joint pain, or bony pain SKIN: No rash, no erythema, no pruritus NEUROLOGIC: Denies weakness, dizziness, headache, numbness, change in speech, confusion PSYCHIATRIC: No concerning psychosocial issues. 12 point review of systems is negative except for those stated above and HPI Patient History Medical History Congestive heart failure Social History household members: family Smoking Status: Never smoker Smoking Status: Never smoker alcohol intake frequency: 0-2 drinks per day Substance Use Type: marijuana Exam Initial Vital Signs Initial Vital Signs: Vital Signs Temperature 96.9 F L 01/18/21 17:06 Pulse Rate 72 01/18/21 17:06 Respiratory Rate 19 01/18/21 17:06 Blood Pressure 120/84 01/18/21 17:06 Pulse Oximetry 97 01/18/21 17:06 GENERAL: 60-year-old male appears slightly older than stated age and is tachypneic HEENT: Head atraumatic,EOMI, pupils reactive, face symmetric, moist mucous membranes CARDIOVASCULAR: Regular rate and rhythm without murmurs, rubs or gallops. RESPIRATORY: Breath sounds equal bilaterally, no wheezes rales or rhonchi. ABDOMEN: Soft, nontender. Normoactive bowel sounds all 4 quadrants. No guarding or rebound. EXTREMITIES: Normal range of motion, no clubbing. No significant lower extremity edema Neurovascularly intact NEUROLOGICAL: Alert and oriented x4.Normal gait and speech. SKIN: Warm, dry, no laceration, no petechiae, no rashes or lesions. Course Orders Ordered: ED Orders 01/18/21 17:09 XR chest 1V Stat EKG-12 Lead Stat 01/18/21 17:20 BNP [NT-proBNP (BNP-Adult 18+)] Stat COVID19 -Nasal swab/Pre-Proc Stat Complete Blood Count AUTO DIFF Stat Comprehensive Metabolic Panel Stat Lipase Stat Magnesium Stat Partial Thromboplastin Time Stat Prothrombin Time INR Stat Troponin & CK Cardiac Panel Stat 01/18/21 17:49 CT angio chest PE protocol Stat 01/18/21 19:17 Troponin I Stat 01/18/21 21:00 Troponin I Stat Nitroglycerin (Nitroglycerin 0.4 Mg Sl Tab) 0.4 mg SL [id number] PRN PRN Reason: Chest Pain Discontinued Medications Aspirin (Aspirin 81 Mg Chew Tab) 324 mg PO NOW ONE Stop: 01/18/21 17:10 Last Admin: 01/18/21 17:42 Dose: 324 mg Documented by: BELLA Furosemide (Furosemide 40 Mg/4 Ml Vial) 40 mg IV NOW ONE Stop: 01/18/21 17:56 Last Admin: 01/18/21 18:12 Dose: 40 mg Documented by: BELLA Lorazepam (Lorazepam 2 Mg/Ml Inj) 0.5 mg IV NOW ONE Stop: 01/18/21 17:43 Last Admin: 01/18/21 17:48 Dose: Not Given Documented by: BELLA Lorazepam (Lorazepam 2 Mg/Ml Inj) 0.5 mg IV NOW ONE Stop: 01/18/21 17:50 Last Admin: 01/18/21 17:54 Dose: 0.5 mg Documented by: MANNYTONSade Lorazepam (Lorazepam 2 Mg/Ml Inj) 0.5 mg IV NOW ONE Stop: 01/18/21 20:34 Vital Signs Vital signs: Vital Signs - 8 hr 01/18/21 17:06 01/18/21 17:22 01/18/21 17:30 Temperature 96.9 F L Pulse Rate 72 85 71 Respiratory Rate 19 30 H Blood Pressure 120/84 Pulse Oximetry 97 97 97 01/18/21 17:31 01/18/21 17:45 01/18/21 18:00 Temperature Pulse Rate 75 76 78 Respiratory Rate 32 H 30 H Blood Pressure 121/81 111/75 Pulse Oximetry 96 98 95 01/18/21 18:15 01/18/21 18:30 01/18/21 18:31 Temperature Pulse Rate 87 90 87 Respiratory Rate 28 H 31 H 34 H Blood Pressure 107/81 Pulse Oximetry 98 96 96 01/18/21 18:41 01/18/21 18:45 01/18/21 18:51 Temperature Pulse Rate 86 86 81 Respiratory Rate 30 H 36 H 31 H Blood Pressure 114/92 H 112/92 H Pulse Oximetry 95 94 95 01/18/21 19:00 01/18/21 19:15 01/18/21 19:30 Temperature Pulse Rate 85 79 80 Respiratory Rate 30 H 30 H 32 H Blood Pressure Pulse Oximetry 97 97 01/18/21 19:45 Temperature Pulse Rate 74 Respiratory Rate 29 H Blood Pressure Pulse Oximetry 97 MDM - Chest Pain Lab Data Result diagrams: 01/18/21 17:20 01/18/21 17:20 Labs: Lab Results 01/18/21 01/18/21 01/18/21 Range/Units 17:20 17:20 17:20 WBC 12.1 H (4.5-11.0) X10^3/uL RBC 5.04 (4.5-5.9) X10^6/uL Hgb 15.0 (13.5-17.5) g/dL Hct 46.7 (41-53) % MCV 92.7 (80-100) fL MCH 29.9 (26-34) PG MCHC 32.2 (30-36) % RDW 14.7 (11.6-14.8) % Plt Count 193 (150-400) X10^3/uL Neut % (Auto) 59.8 (50-75) % Lymph % (Auto) 25.4 (25-40) % [place] % (Auto) 13.1 (3-14) % Eos % (Auto) 0.8 L (2-4) % Baso % (Auto) 0.9 (0-2) % Neut # (Auto) 7200 H (9167-7684) /uL Lymph # (Auto) 3100 (8625-7838) /uL [place] # (Auto) 1600 H (0-900) /uL Eos # (Auto) 100 (0-450) /uL Baso # (Auto) 100 (0-100) /uL PT 21.3 H (10.1-12.7) SECONDS INR 1.9 H (0.9-1.3) APTT 35 (26.4-36.2) SECONDS Sodium 139 (137-145) mmol/L Potassium 4.1 (3.4-5.1) mmol/L Chloride 101 (98-107) mmol/L Carbon Dioxide 29 (22-32) mmol/L BUN 46 H (9-20) mg/dL Creatinine 1.59 H (0.66-1.25) mg/dL Estimated GFR 44.8 L (>60) mL/min BUN/Creatinine Ratio 28.9 H (6-22) Glucose 180 H (70-100) mg/dL Calcium 8.8 (8.4-10.2) mg/dL Magnesium 2.2 (1.6-2.3) mg/dL Total Bilirubin 1.1 (0.2-1.3) mg/dL AST 114 H (17-59) IU/L ALT 151 H (<50) IU/L Alkaline Phosphatase 77 (38-126) U/L Total Creatine Kinase 78 (55-170) U/L CK-MB (CK-2) TNP CK-MB (CK-2) Rel Index TNP Troponin I 0.049 H (0.01-0.034) ng/mL NT-Pro-B Natriuret Pep 3260 H (<125) pg/mL Total Protein 6.9 (6.3-8.2) g/dL Albumin 4.2 (3.5-5.0) g/dL Globulin 2.7 (1.7-4.1) g/dL Albumin/Globulin Ratio 1.6 (1.0-2.8) Lipase 101 (23-300) U/L SARS-CoV-2 (PCR) (Negative) 01/18/21 01/18/21 Range/Units 17:20 19:17 WBC (4.5-11.0) X10^3/uL RBC (4.5-5.9) X10^6/uL Hgb (13.5-17.5) g/dL Hct (41-53) % MCV (80-100) fL MCH (26-34) PG MCHC (30-36) % RDW (11.6-14.8) % Plt Count (150-400) X10^3/uL Neut % (Auto) (50-75) % Lymph % (Auto) (25-40) % [place] % (Auto) (3-14) % Eos % (Auto) (2-4) % Baso % (Auto) (0-2) % Neut # (Auto) (6655-7374) /uL Lymph # (Auto) (9859-4264) /uL [place] # (Auto) (0-900) /uL Eos # (Auto) (0-450) /uL Baso # (Auto) (0-100) /uL PT (10.1-12.7) SECONDS INR (0.9-1.3) APTT (26.4-36.2) SECONDS Sodium (137-145) mmol/L Potassium (3.4-5.1) mmol/L Chloride (98-107) mmol/L Carbon Dioxide (22-32) mmol/L BUN (9-20) mg/dL Creatinine (0.66-1.25) mg/dL Estimated GFR (>60) mL/min BUN/Creatinine Ratio (6-22) Glucose (70-100) mg/dL Calcium (8.4-10.2) mg/dL Magnesium (1.6-2.3) mg/dL Total Bilirubin (0.2-1.3) mg/dL AST (17-59) IU/L ALT (<50) IU/L Alkaline Phosphatase (38-126) U/L Total Creatine Kinase (55-170) U/L CK-MB (CK-2) CK-MB (CK-2) Rel Index Troponin I 0.061 H (0.01-0.034) ng/mL NT-Pro-B Natriuret Pep (<125) pg/mL Total Protein (6.3-8.2) g/dL Albumin (3.5-5.0) g/dL Globulin (1.7-4.1) g/dL Albumin/Globulin Ratio (1.0-2.8) Lipase (23-300) U/L SARS-CoV-2 (PCR) Negative (Negative) Imaging Data Chest x-ray: Radiologist's Impression: PROCEDURE:? XR CHEST 1V ? INDICATIONS:? chest pain ? TECHNIQUE:? One view of the chest was acquired.? ? COMPARISON:? Located Within [facility], CT, CT CHEST ABDOMEN PELVIS WITHOUT CONTRAST, 01/18/2020, 19:45.? Located Within [facility], CR, XR CHEST 1 VIEW, 01/18/2020, 15:17.? Located Within [facility], CR, CHEST 2VW, 05/03/2013, 8:02.? [facility], CR, XR CHEST 1V, 07/08/2020, 12:03. ? FINDINGS:? ? Surgical changes and devices:? An AICD is seen.? The leads are seen in stable positions.? ? ? Lungs and pleura:? On this semiupright portable chest examination, no large pneumothorax or large pleural effusions are seen.? No focal infiltrates are seen.? Low lung volumes are noted. This causes a crowded appearance to the lung markings and limits evaluation.? ? Mediastinum:? Mediastinal contours appear normal.? Heart size is moderately enlarged.? ? Bones and chest wall:? No suspicious bony lesions.? Age-appropriate bony degenerative changes are seen.? Overlying soft tissues appear unremarkable.? ? ? IMPRESSION:? Moderate cardiomegaly. ? Clear lungs. ? Postoperative and degenerative changes are seen.? ? ? Dictated by: Doc Chowdary M.D. on 01/18/2021 at 16:25 ? CT scan - chest: Radiologist's Impression: PROCEDURE:? CT ANGIO CHEST PE PROTOCOL ? INDICATIONS:? hypoxia ? TECHNIQUE:? After the administration of intravenous contrast, 2 mm thick sections acquired from the pulmonary apices to the posterior costophrenic angles.? 3-dimensional maximum intensity projection (MIP) coronal and sagittal reformats were then acquired through the thorax.? For radiation dose reduction, the following was used:? automated exposure control, adjustment of mA and/or kV according to patient size.? ? COMPARISON:? Located Within [facility], CT, CHEST ANGIO-PE, 01/28/2013, 18:38.? [facility], CR, XR CHEST 1V, 01/18/2021, 17:13. ? FINDINGS:? Image quality:? There is mild motion artifact.? ? Pulmonary arteries:? Pulmonary arteries are normal in size, and demonstrate no intraluminal filling defects to suggest central pulmonary embolism.? ? Lungs and pleura:? There is dependent atelectasis bilaterally.? No pleural effusions or pneumothorax.? Central and peripheral airways are patent.? ? Mediastinum:? Heart size is enlarged, without a pericardial effusion.? There is a left chest wall AICD with leads extending into the right atrium, right ventricle, and coronary sinus.? There is reflux of contrast into the inferior vena cava and hepatic veins suggestive of elevated right heart filling pressures.? No mediastinal or hilar adenopathy.? Thoracic aorta is normal in caliber and enhancement.? Esophagus is normal in caliber, without hiatal hernia.? ? Bones and chest wall:? No suspicious bony lesions.? Ribs and thoracic spine appear intact throughout.? No axillary or supraclavicular adenopathy.? ? Abdomen:? Visualized upper abdomen demonstrates a small amount of perihepatic free fluid. ?There is slight nodularity of the hepatic contour. ? IMPRESSION:? ? 1. No evidence of pulmonary embolism. ? 2. Dependent atelectasis in the lungs without acute consolidation. ? 3. Small amount of free fluid within the visualized upper abdomen.? ? ? Dictated by: Juan Bhakta M.D. on 01/18/2021 at 18:16 ? ? ECG Data Interpretation: Paced rhythm rate 86 KS interval 200 or PVC noted no significant ST-T change MDM Narrative Medical decision making narrative: The patient has elevated BNP and distended abdomen symptoms most consistent with congestive heart failure also his extremely low EF and history of congestive heart failure. He is given Lasix which he has urinated multiple times in the ED. initiallydoing a bit better. Troponin is indeterminate but rising, possible stressed related secondary to CHF exacerbation versus acute coronary syndrome. If troponin becomes positive they would like treatment. Harpreet SABILLON updated on patient's symptoms test results and happily accepts for observation Discharge Plan Departure Patient Disposition: Admitted as Observation Clinical Impression: Congestive heart failure, Chest pain Prescriptions: No Action Lantus Solostar U-100 Insulin 100 unit/mL (3 mL) insulin pen 30 unit SUBCUT DAILY RF: 0 furosemide 40 mg tablet 40 mg PO DAILY RF: 0 amiodarone 200 mg tablet 200 mg PO DAILY RF: 0 clonazepam 0.5 mg tablet 0.5 mg PO BID PRN (Reason: Anxiety) RF: 0 spironolactone 25 mg tablet 12.5 mg PO DAILY RF: 0 citalopram 20 mg tablet 20 mg PO DAILY RF: 0 lisinopril 2.5 mg tablet 2.5 mg PO DAILY RF: 0 Novolog Flexpen U-100 Insulin 5 unit SUBCUT QNOON RF: 0 aspirin 325 mg PO DAILY RF: 0 carvedilol 12.5 mg tablet 12.5 mg PO BID RF: 0 Referrals: Kenzie Grigsby DO [Primary Care Provider] -
[2021-01-18 17:32] LABS: INR 1.9 (0.9-1.3); Prothrombin Time 21.3 SECONDS (10.1-12.7)
[2021-01-18 17:34] LABS: PTT Partial Thromboplastin Tim 35 SECONDS (26.4-36.2)
[2021-01-18 17:37] LABS: Alanine Aminotransferase 151 IU/L (<50); Albumin 4.2 g/dL (3.5-5.0); Albumin Globulin Ratio 1.6 (1.0-2.8); Alkaline Phosphatase 77 U/L (38-126); Aspartate Aminotransferase 114 IU/L (17-59); BUN Creatinine Ratio 28.9 (6-22); Bilirubin Total 1.1 mg/dL (0.2-1.3); Blood Urea Nitrogen 46 mg/dL (9-20); Calcium 8.8 mg/dL (8.4-10.2); Carbon Dioxide 29 mmol/L (22-32); Chloride 101 mmol/L (98-107); Creatine Kinase 78 U/L (55-170); Estimated Glomerular Filt Rate 44.8 mL/min (>60); Globulin 2.7 g/dL (1.7-4.1); Glucose 180 mg/dL (70-100); HEMOLYSIS < 15 (0-50); Lipase 101 U/L (23-300); Magnesium 2.2 mg/dL (1.6-2.3); Potassium 4.1 mmol/L (3.4-5.1); Sodium 139 mmol/L (137-145); Total Protein 6.9 g/dL (6.3-8.2)
[2021-01-18] MEDS: ASPIRIN 81 MG CHEW TAB 324 MG PO (17:42)
[2021-01-18 17:48] LABS: COVID19 -Nasal RAPID Negative (Negative)
[2021-01-18 17:49] LABS: NT-proBNP (BNP-Adult 18+) 3260 pg/mL (<125); Troponin I 0.049 ng/mL (0.01-0.034)
--- NOTE | 2021-01-18 17:49 | DI.CT.S_ITS ---
PROCEDURE: CT ANGIO CHEST PE PROTOCOL INDICATIONS: hypoxia TECHNIQUE: After the administration of intravenous contrast, 2 mm thick sections acquired from the pulmonary apices to the posterior costophrenic angles. 3-dimensional maximum intensity projection (MIP) coronal and sagittal reformats were then acquired through the thorax. For radiation dose reduction, the following was used: automated exposure control, adjustment of mA and/or kV according to patient size. COMPARISON: [facility], CT, CHEST ANGIO-PE, 01/28/2013, 18:38. [facility], CR, XR CHEST 1V, 01/18/2021, 17:13. FINDINGS: Image quality: There is mild motion artifact. Pulmonary arteries: Pulmonary arteries are normal in size, and demonstrate no intraluminal filling defects to suggest central pulmonary embolism. Lungs and pleura: There is dependent atelectasis bilaterally. No pleural effusions or pneumothorax. Central and peripheral airways are patent. Mediastinum: Heart size is enlarged, without a pericardial effusion. There is a left chest wall AICD with leads extending into the right atrium, right ventricle, and coronary sinus. There is reflux of contrast into the inferior vena cava and hepatic veins suggestive of elevated right heart filling pressures. No mediastinal or hilar adenopathy. Thoracic aorta is normal in caliber and enhancement. Esophagus is normal in caliber, without hiatal hernia. Bones and chest wall: No suspicious bony lesions. Ribs and thoracic spine appear intact throughout. No axillary or supraclavicular adenopathy. Abdomen: Visualized upper abdomen demonstrates a small amount of perihepatic free fluid. There is slight nodularity of the hepatic contour. IMPRESSION: 1. No evidence of pulmonary embolism. 2. Dependent atelectasis in the lungs without acute consolidation. 3. Small amount of free fluid within the visualized upper abdomen. Dictated by: Juan Bhakta M.D. on 01/18/2021 at 18:16 Approved by: Juan Bhakta M.D. on 01/18/2021 at 18:23
[2021-01-18] MEDS: LORazepam 2 MG/ML INJ 0.5 MG IV ×2 (17:54→20:52)
[2021-01-18] MEDS: FUROSEMIDE 40 MG/4 ML VIAL IV (18:12)
[2021-01-18 19:45] LABS: Troponin I 0.061 ng/mL (0.01-0.034)
[2021-01-18] MEDS: ALBUTEROL 2.5 MG/3 ML NEB (ADULT) INH (21:10)
[2021-01-18 21:37] LABS: Troponin I 0.067 ng/mL (0.01-0.034)
[2021-01-18 21:52] LABS: COVID19 - ADMIT (NP swab/PCR) Negative (Negative)
--- NOTE | 2021-01-18 23:07 | PM.HP.1 ---
History of Present Illness History of Present Illness Date Patient Seen: 01/18/21 Time Patient Seen: 22:44 Chief complaint: SOB HARD TIME SLEEPING NO APPETITE Narrative: Patient is a 60-year-old male with history of dilated cardiomegaly with ppm, right systolic congestive heart failure with an ICD an EF 10-15%, chronic atrial fibrillation, multisubstance use, CKD III, HTN, HLD, CLAUDIA with CPAP, type 2 insulin-dependent diabetic, and hx of meth abuse clean x 9 yrs who presented with 5 days of increasing mid upper chest tightness and shortness of breath.? He says he is becoming more short of breath with exertion than normal. Patient notes increased swelling in his abd, with bilateral lower abd pain, is dry heaving but no vomiting, no cough, he notes that his chest pain comes and goes but worsens with deep breathing. Denies any increased swelling in his legs, fever, body aches, but does not that he has been having severe diaphoresis during the night with chills.? He says previously been in congestive heart failure, not sure if he is in it now.?Patient is followed by [facility] cardiology and is not on any anticoagulation.? He was previously on hospice but no longer is, and requests to be a FULL CODE. Dr. Martinez Consult in ED:Dr. Dejesus (Cardiology) feels at this time patient is appropriate to stay here.? We did review patient's echo from June which was 10-15% which was worsened from his priors.? His troponin trended upwards this evening from 0.04-0.061 and then 0.067.? Patient's BNP is 3200 today. Patient's vitals were stable upon admit and was in no distress, respirations were slightly tachypneic at 29, O2 saturation 97% on room air. Patient did have a mildly elevated WBC at 12.1, neutrophils 7200. BUN 46, creatinine 1.59, GFR 44.8 these are all consistent with patient's CKD stage 3, glucose 180, proBNP 30-60, troponin 1. 0.049, 2. 0.061, 0.0 6 7. Patient had a echo done on 07/08/[address] chyna arellano with an ejection fraction of 10-15% patient does have a pacemaker in place. Patient's chest CTA was negative for pulmonary embolus, chest x-ray demonstrated moderate cardiomegaly a, no acute cardiopulmonary processes at this time. Patient admitted for chest pain, CHF exacerbation, possible NSTEMI with elevated troponins. Patient History Medical History (Updated 01/19/21 @ 01:55 [facility] Chronic a-fib CKD (chronic kidney disease) stage 3, GFR 30-59 ml/min Congestive heart failure Dilated cardiomyopathy Essential hypertension Hepatomegaly History of cardiac pacemaker in situ Hyperlipidemia associated with type 2 diabetes mellitus Insulin dependent type 2 diabetes mellitus Multiple substance abuse Obesity (BMI 30.0-34.9) Steatosis of liver Surgical History (Updated 01/18/21 @ 23:17 by [facility] History of cholecystectomy History of implantable cardiac defibrillator (ICD) Status post placement of cardiac pacemaker Family & Social History Family History (Updated 01/19/21 @ 01:54 by [facility] Sister Brain aneurysm Father Diabetes mellitus Heart disease Lupus Social History: household members family Safety & Behavioral: Feels Safe in Current Yes Environment Been Physically Hurt or No Threatened By a Person Tobacco & Substance use: Smoking Status Never smoker alcohol intake frequency 0-2 drinks per day Substance Use Type marijuana Meds Home Medications and Allergies Home Medications Medication Instructions Recorded Confirmed Type clonazepam 0.5 mg tablet 0.5 mg PO BID PRN 07/08/20 01/18/21 History spironolactone 25 mg tablet 12.5 mg PO QAM 07/08/20 01/18/21 History albuterol sulfate 2.5 mg CONTINUOUS NEBULIZATION Q4H 01/18/21 01/18/21 History PRN aspirin 81 mg tablet 81 mg PO DAILY 01/18/21 01/18/21 History carvedilol 6.25 mg tablet 6.25 mg PO BID 01/18/21 01/18/21 History insulin aspart U-100 100 unit/mL 5 unit SUBCUT TID 01/18/21 01/18/21 History (3 mL) subcutaneous pen (Novolog Flexpen U-100 Insulin aspart) insulin glargine 100 unit/mL (3 35 unit SUBCUT BEDTIME 01/18/21 01/18/21 History mL) subcutaneous pen (Lantus Solostar U-100 Insulin) simvastatin 20 mg tablet 20 mg PO BEDTIME 01/18/21 01/18/21 History torsemide 20 mg tablet 40 mg PO QAM 01/18/21 01/18/21 History trazodone 50 mg tablet 50 mg PO BEDTIME 01/18/21 01/18/21 History Allergies Allergy/AdvReac Type Severity Reaction Status Date / Time metformin Allergy Intermediate Vomiting Verified 01/18/21 17:09 Review of Systems Review of Systems Narrative: All 12 point systems reviewed with the patient and are negative except otherwise documented. Exam Vital Signs (past 8 hours): - 01/18/21 17:06 01/18/21 17:22 01/18/21 17:30 Temperature 96.9 F L Pulse Rate 72 85 71 Respiratory Rate 19 30 H Blood Pressure 120/84 Pulse Oximetry 97 97 97 01/18/21 17:31 01/18/21 17:45 01/18/21 18:00 Temperature Pulse Rate 75 76 78 Respiratory Rate 32 H 30 H Blood Pressure 121/81 111/75 Pulse Oximetry 96 98 95 01/18/21 18:15 01/18/21 18:30 01/18/21 18:31 Temperature Pulse Rate 87 90 87 Respiratory Rate 28 H 31 H 34 H Blood Pressure 107/81 Pulse Oximetry 98 96 96 01/18/21 18:41 01/18/21 18:45 01/18/21 18:51 Temperature Pulse Rate 86 86 81 Respiratory Rate 30 H 36 H 31 H Blood Pressure 114/92 H 112/92 H Pulse Oximetry 95 94 95 01/18/21 19:00 01/18/21 19:15 01/18/21 19:30 Temperature Pulse Rate 85 79 80 Respiratory Rate 30 H 30 H 32 H Blood Pressure Pulse Oximetry 97 97 01/18/21 19:45 01/18/21 20:00 01/18/21 20:15 Temperature Pulse Rate 74 83 81 Respiratory Rate 29 H 30 H 37 H Blood Pressure Pulse Oximetry 97 95 97 01/18/21 20:30 01/18/21 20:45 01/18/21 20:51 Temperature Pulse Rate 87 78 85 Respiratory Rate 32 H 29 H 33 H Blood Pressure 112/84 Pulse Oximetry 01/18/21 21:00 01/18/21 21:15 01/18/21 21:30 Temperature Pulse Rate 86 87 91 H Respiratory Rate 29 H 29 H 32 H Blood Pressure Pulse Oximetry 94 01/18/21 21:40 01/18/21 21:45 01/18/21 21:50 Temperature Pulse Rate 80 83 80 Respiratory Rate 28 H 29 H 30 H Blood Pressure 120/93 H 117/88 Pulse Oximetry 94 95 01/18/21 22:00 01/18/21 22:15 01/18/21 22:20 Temperature Pulse Rate 69 71 69 Respiratory Rate 25 H 33 H 29 H Blood Pressure 120/86 Pulse Oximetry 93 01/18/21 22:30 01/18/21 22:45 Temperature Pulse Rate 83 97 H Respiratory Rate 30 H 31 H Blood Pressure 120/82 Pulse Oximetry Oxygen Delivery Method Room Air Narrative Exam Narrative: General: Patient is a well-developed, well-nourished in no distress at this time. HEENT: Normocephalic, atraumatic, extraocular muscles intact, oral pharynx is clear and mucous membranes are moist. Neck is supple and symmetric, trachea is midline, no adenopathy, no thyroid enlargement, nontender, no masses palpated. Negative for JVD, patient does have a moderate appearing cyst to left forehead without signs of infection. Chest: Normal AP diameter and contour without kyphoscoliosis, no nasal flaring, retractions, or tachypneic labored Lungs: Auscultation of all lung patel are clear without adventitious sounds, wheezes, rhonchi, or rales. Cardio: S1 & S2 with regular rate and rhythm without murmur, rubs, or gallops, no carotid bruit, no cardiac pulsations present. Abdomen: Soft mild lower mid quad tenderness with palpation, noted brusing present from insulin injections, positive fluctuation, suspect ascites, negative for organomegaly, or masses. Bowel sounds are present in all 4 quadrants without guarding or rebound, no CVA tenderness. Musculoskeletal: Muscle strength and tone are equal within normal limits, no deformity, crepitus, effusions, cyanosis, or clubbing present. Mild +1 bilateral lower extremity edema, range of motion intact radial and pedal pulses are normal. Skin: Warm dry and intact without rashes, ulcerations or petechiae. Neuro: Alert and orientated x3, strength is +5/5 in all extremities, sensation to touch intact, no gross deficits noted of cranial nerves. Psych: Patient has a moderately-kept appearance, appropriate affect, mental status attitude thought context and judgment are appropriate for age. Objective Labs Result Diagrams: 01/18/21 17:20 01/18/21 17:20 Labs: Laboratory Results - last 24 hr 01/18/21 01/18/21 01/18/21 17:20 17:20 17:20 WBC 12.1 H RBC 5.04 Hgb 15.0 Hct 46.7 MCV 92.7 MCH 29.9 MCHC 32.2 RDW 14.7 Plt Count 193 Neut % (Auto) 59.8 Lymph % (Auto) 25.4 [place] % (Auto) 13.1 Eos % (Auto) 0.8 L Baso % (Auto) 0.9 Neut # (Auto) 7200 H Lymph # (Auto) 3100 [place] # (Auto) 1600 H Eos # (Auto) 100 Baso # (Auto) 100 PT 21.3 H INR 1.9 H APTT 35 Sodium 139 Potassium 4.1 Chloride 101 Carbon Dioxide 29 BUN 46 H Creatinine 1.59 H Estimated GFR 44.8 L BUN/Creatinine Ratio 28.9 H Glucose 180 H Calcium 8.8 Magnesium 2.2 Total Bilirubin 1.1 AST 114 H ALT 151 H Alkaline Phosphatase 77 Total Creatine Kinase 78 CK-MB (CK-2) TNP CK-MB (CK-2) Rel Index TNP Troponin I 0.049 H NT-Pro-B Natriuret Pep 3260 H Total Protein 6.9 Albumin 4.2 Globulin 2.7 Albumin/Globulin Ratio 1.6 Lipase 101 SARS-CoV-2 (PCR) 01/18/21 01/18/21 01/18/21 17:20 19:17 20:53 WBC RBC Hgb Hct MCV MCH MCHC RDW Plt Count Neut % (Auto) Lymph % (Auto) [place] % (Auto) Eos % (Auto) Baso % (Auto) Neut # (Auto) Lymph # (Auto) [place] # (Auto) Eos # (Auto) Baso # (Auto) PT INR APTT Sodium Potassium Chloride Carbon Dioxide BUN Creatinine Estimated GFR BUN/Creatinine Ratio Glucose Calcium Magnesium Total Bilirubin AST ALT Alkaline Phosphatase Total Creatine Kinase CK-MB (CK-2) CK-MB (CK-2) Rel Index Troponin I 0.061 H NT-Pro-B Natriuret Pep Total Protein Albumin Globulin Albumin/Globulin Ratio Lipase SARS-CoV-2 (PCR) Negative Negative 01/18/21 21:05 WBC RBC Hgb Hct MCV MCH MCHC RDW Plt Count Neut % (Auto) Lymph % (Auto) [place] % (Auto) Eos % (Auto) Baso % (Auto) Neut # (Auto) Lymph # (Auto) [place] # (Auto) Eos # (Auto) Baso # (Auto) PT INR APTT Sodium Potassium Chloride Carbon Dioxide BUN Creatinine Estimated GFR BUN/Creatinine Ratio Glucose Calcium Magnesium Total Bilirubin AST ALT Alkaline Phosphatase Total Creatine Kinase CK-MB (CK-2) CK-MB (CK-2) Rel Index Troponin I 0.067 H NT-Pro-B Natriuret Pep Total Protein Albumin Globulin Albumin/Globulin Ratio Lipase SARS-CoV-2 (PCR) Assessment & Plan Assessment & Plan narrative: Raman Roldan is a 60 year old male with PMH of insulin dependent type 2 diabetes, dilated cardiomyopathy with PPM and Bi-V ICD, atrial fibrillation, history of methamphetamine use in remission x 9 yrs, current daily marijuana use, CKD III, HTn, hepatomegaly with steatosis, HLD who presented to the ED with chest pain and shortness of breath. Admitted for chest pain, shortness of breath, elevated troponin, and CHF exacerbation with possible NSTEMI. 1. Chest pain with shortness of breath, CHF exacerbation, right systolic with ejection fraction 10-15%, in the setting of elevated troponins, acute on chronic, present on admission -poss NSTEMI -troponin 1. 0.049, 2. 0.061, 3. 0.067 without EKG changes -Dr. [facility] Cardiology consult from ED, patient not a candidate recommended for further interventions at this time, appropriate for admit. -initial BNP 3260 -IV Lasix 20 mg b.i.d.-titrate for diuresis, monitor for hyponatremia -patient monitored on telemedicine, will repeat troponin in the a.m. -patient's EKG remains unchanged, patient is not in distress, satting in the high 90s on room air, chest pain is improving 5/10 on admit, B/P 112/92. -Heparin Held until after US, in case the patient will require paracentesis. 2. Lower abdominal pain, acute, in the setting hepatomegaly with steatosis, present on admission -possible ascites contributing to patient's shortness of breath. -ABD US ordered for tomorrow 3. Insulin dependent type 2 diabetes, acute on chronic, with related hyperlipidemia, acute on chronic, present on admission-uncontrolled -initial blood sugar 180, A1c 9.5% -patient admitted under diabetic protocol, monitor for hypoglycemia -titrate Lantus dose based on a.m. blood sugar goal 120 -continue Lantus & sliding scale correctional, BS Q ACHS -continue patient's simvastatin 4. Non-ischemic dilated cardiomyopathy, with PPM and Bi-V ICD, chronic, present on admssion -initial BNP 3260 ?- continue diuresis with IV lasix 20 mg IV BID to see if improvement in symptoms as noted above.No prior TTE available for review at this time. ?- will obtain TTE for suspected acute on chronic heart failure. ?- JETHRO, hepatic congestion likely in setting of heart failure. ?- strict Is and Os. 5. History of PPM placement, atrial fibrillation, chronic, present on admission ?- placed 03/2020 at [facility]. EKG shows paced rhythm. 6. Polystubstance use with history of methamphetamine use (remission x9 years) and current marijuana use, acute on chronic, present on admission ?-counseled on marijuana cessation as noted above. 7. CKD III, chronic, present on admission ?-admitting BUN 46, creatinine 1.59, GFR 44.8-no JETHRO as these are baseline for this patient. -continue to monitor electrolytes during diuresis 8. Essentional hypertension, chronic, present on admission -continue patient's carvedilol spirolactone 9. Depression, chronic, present on admission -continue patient's trazodone, and clonazepam 10. Obesity as evidence by BMI of 34.8, acute on chronic, present on admission -consideration will be given for dietary counseling 11. Obstructive sleep apnea with CPAP, chronic, present on admission -respiratory consulted- cpap -a DuoNeb q.4 hours as needed for shortness of breath Code status: Full code, had previously been a DNR on hospice, patient has since come off hospice. Surrogate decision maker: Son-Raman Roldan COVID PCR:Negative COVID vaccination: Unknown DVT/VTE prophylaxis:Heparin 5000units BID (holding until after Abd US in case of paracentesis), SCD's, Disposition: I have utilized all available immediate resources to obtain, update, or review the patient's current medications. I confirmed that the patient's advanced care plan is present, Code status is documented and/or surrogate decision maker is listed in the patient's medical record. Time Spent With Patient Critical Care time: I spent a total of [] minutes of critical care time on this patient's care today; this time is exclusive of procedural time. Scores GCS Anu coma scale eye opening: Spontaneous Anu coma scale verbal response: Orientated [place] coma scale motor response: Obey commands Anu coma scale total score: 15 Wells' Criteria for PE Clinical signs and symptoms of DVT: No PE is #1 Dx or equally likely: No Heart rate > 100: No Immobilization at least 3 days or surg in previous 4 weeks: No History of PE or DVT: No Hemoptysis: No Malignancy w/Treatment within 6 months or palliative: No Wells' PE Score total: 0
[2021-01-18 23:08] LABS: Hemoglobin A1C% w Est Avg Glu 9.5 % (4.0-6.0)
[2021-01-18 23:31] LABS: Thyroid Stimulating Hormone 3.71 uIU/mL (0.47-4.68)
[2021-01-19] VITALS (15 sets, daily range): BP systolic 116–133; BP diastolic 57–90; PULSE 60–94; RESP 16–30; TEMP 35.7–36.8; O2SAT 92–98; BMI 34.8
[2021-01-19] MEDS: TRAZODONE 50 MG TABLET PO ×2 (01:06→20:17)
--- NOTE | 2021-01-19 01:53 | PC.ADMIT ---
[address] Admission Note: Patient arrived via wheelchair from the ED at 2335. Patient was A/O, on RA, VSS, and did have SOB with talking and activity. Patient was oriented to room, call light, and fall preventions. Patient did state that he does have consistent thoughts of harming himself, although he does not have any plans. Patient requires 1:1 sitter by this RN. Bed was left in lowest position and call light was left within reach. The patient,Raman Roldan,60 y/o, was given written information regarding hospital policies, unit procedures and contact persons. Patient's smoking status: Never smoker. Vital Signs - 8 hr 01/18/21 18:00 01/18/21 18:15 01/18/21 18:30 Temperature Pulse Rate 78 87 90 Respiratory Rate 30 H 28 H 31 H Blood Pressure 111/75 Pulse Oximetry 95 98 96 01/18/21 18:31 01/18/21 18:41 01/18/21 18:45 Temperature Pulse Rate 87 86 86 Respiratory Rate 34 H 30 H 36 H Blood Pressure 107/81 114/92 H Pulse Oximetry 96 95 94 01/18/21 18:51 01/18/21 19:00 01/18/21 19:15 Temperature Pulse Rate 81 85 79 Respiratory Rate 31 H 30 H 30 H Blood Pressure 112/92 H Pulse Oximetry 95 97 01/18/21 19:30 01/18/21 19:45 01/18/21 20:00 Temperature Pulse Rate 80 74 83 Respiratory Rate 32 H 29 H 30 H Blood Pressure Pulse Oximetry 97 97 95 01/18/21 20:15 01/18/21 20:30 01/18/21 20:45 Temperature Pulse Rate 81 87 78 Respiratory Rate 37 H 32 H 29 H Blood Pressure Pulse Oximetry 97 01/18/21 20:51 01/18/21 21:00 01/18/21 21:15 Temperature Pulse Rate 85 86 87 Respiratory Rate 33 H 29 H 29 H Blood Pressure 112/84 Pulse Oximetry 94 01/18/21 21:30 01/18/21 21:40 01/18/21 21:45 Temperature Pulse Rate 91 H 80 83 Respiratory Rate 32 H 28 H 29 H Blood Pressure 120/93 H Pulse Oximetry 94 95 01/18/21 21:50 01/18/21 22:00 01/18/21 22:15 Temperature Pulse Rate 80 69 71 Respiratory Rate 30 H 25 H 33 H Blood Pressure 117/88 Pulse Oximetry 93 01/18/21 22:20 01/18/21 22:30 01/18/21 22:45 Temperature Pulse Rate 69 83 97 H Respiratory Rate 29 H 30 H 31 H Blood Pressure 120/86 120/82 Pulse Oximetry 01/18/21 23:35 01/19/21 00:00 Temperature 97.1 F L Pulse Rate 68 Respiratory Rate 20 Blood Pressure 126/86 Pulse Oximetry 98 98
--- NOTE | 2021-01-19 02:10 | DI.US.S_ITS ---
PROCEDURE: US ABDOMEN LIMITED INDICATIONS: EVALUATE FOR ASCITES TECHNIQUE: Real-time focused scanning was performed of the abdomen, with image documentation. COMPARISON: None. FINDINGS: Limited ultrasound demonstrates only trace fluid in the right upper quadrant. IMPRESSION: No significant ascites is present. Dictated by: Willy Mina M.D. on 01/19/2021 at 9:23 Approved by: Willy Mina M.D. on 01/19/2021 at 9:24
--- NOTE | 2021-01-19 04:26 | PC.NURSE ---
Patient requesting to take CPAP off, as he was sweating and hot while sleeping with it on. Patient's O2 was 96-97% but patient was requesting to have O2 NC on. This RN placed the patient on 1L NC and notified RT. Verbal was given that it is okay to leave patient on 1L NC at this time.
[2021-01-19 05:24] LABS: INR 1.8 (0.9-1.3)
[2021-01-19 05:27] LABS: Add Manual Diff / Slide Review NO; Basophils Absolute Auto 100 /uL (0-100); Basophils Percent Auto 0.5 % (0-2); Eosinophils Absolute Auto 100 /uL (0-450); Eosinophils Percent Auto 1.1 % (2-4); Hematocrit 44.9 % (41-53); Hemoglobin 14.2 g/dL (13.5-17.5); Lymphocytes Absolute Auto 3300 /uL (1100-4500); Lymphocytes Percent Auto 29.5 % (25-40); Mean Corpuscular HGB Conc 31.6 % (30-36); Mean Corpuscular Hemoglobin 29.2 PG (26-34); Mean Corpuscular Volume 92.4 fL (80-100); Monocytes Absolute Auto 1500 /uL (0-900); Monocytes Percent Auto 13.8 % (3-14); Neutrophils Absolute Auto 6100 /uL (1500-7000); Neutrophils Percent Auto 55.1 % (50-75); PTT Partial Thromboplastin Tim 36 SECONDS (26.4-36.2); Platelet Count 164 X10^3/uL (150-400); Red Blood Cell Count 4.86 X10^6/uL (4.5-5.9); White Blood Cell Count 11.2 X10^3/uL (4.5-11.0)
[2021-01-19 05:39] LABS: Alanine Aminotransferase 150 IU/L (<50); Albumin 3.9 g/dL (3.5-5.0); Albumin Globulin Ratio 1.6 (1.0-2.8); Alkaline Phosphatase 71 U/L (38-126); Aspartate Aminotransferase 99 IU/L (17-59); BUN Creatinine Ratio 28.8 (6-22); Bilirubin Total 1.3 mg/dL (0.2-1.3); Bilirubin Unconjugated 1.1 mg/dL (0.0-1.1); Blood Urea Nitrogen 46 mg/dL (9-20); Calcium 8.8 mg/dL (8.4-10.2); Carbon Dioxide 32 mmol/L (22-32); Chloride 103 mmol/L (98-107); Cholesterol 62 mg/dL (140-199); Estimated Glomerular Filt Rate 44.5 mL/min (>60); Globulin 2.5 g/dL (1.7-4.1); Glucose 104 mg/dL (70-100); HDL Cholesterol 11 mg/dL (40-60); HEMOLYSIS < 15 (0-50); LDL Cholesterol Calculated 39 mg/dL (<100); Potassium 3.7 mmol/L (3.4-5.1); Sodium 142 mmol/L (137-145); Total Protein 6.4 g/dL (6.3-8.2); Triglycerides 59 mg/dL (35-150)
[2021-01-19 05:49] LABS: NT-proBNP (BNP-Adult 18+) 3730 pg/mL (<125)
--- NOTE | 2021-01-19 07:59 | PC.NURSE ---
Addendum entered by Junior Oconnor R.N. 01/19/21 10:46: Patient able to speak to his family members over the phone, and then attempting to rest intermittently. Patient remains restless at times, does not tolerating laying flat. Spoke with this RN about his emotions, he states he is feeling depressed. He describes that feelings about harming himself come and go, are not constant at this time, and are usually related to times when he is in pain. Denies a plan for self harm at this time. He describes feeling hopeless about his pain in his legs because there is nothing they can do for them, he reports he is scheduled to get a steroid injection in his knees soon and sometimes it helps a little. Per RN coordinator, Dr. Boogie will be seeing patient today and re assessing need for suicide precautions and constant observation need. Patient is pleasant, and open to answering questions. He states he also talks with both of his sisters when he needs emotional support and this helps, he has spoken to them on the phone today already. Will continue with plan of care, and continue to monitor. Addendum entered by Junior Oconnor R.N. 01/19/21 09:18: Ultrasound completed at bedside. (Patient is allowed to eat now per US no reason to be NPO) Addendum entered by Junior Oconnor R.N. 01/19/21 08:33: Spoke with Fany in Ultrasound, she states they will plan to do test this morning and patient should stay NPO. Breakfast held at this time, patient states he is really hungry and has not had food since yesterday at noon. Patient is restless and anxious, moving up and down in bed and sitting at the side frequently. He denies pain at this time, endorses anxiety and asks for anti-anxiety medication. Original Note: Written by Wilton Mullins that heparin is to be held until after abdominal US given that patient may need paracentesis. Will hold AM dose at this time and follow up with MD today regarding plan of care.
[2021-01-19] MEDS: clonazePAM 0.5 MG TABLET PO ×2 (08:09→20:16)
[2021-01-19] MEDS: SODIUM CHLORIDE 0.9% FLUSH 10 ML IV ×4 (08:19→23:53)
[2021-01-19] MEDS: FUROSEMIDE 20 MG/2 ML VIAL IV (08:19)
[2021-01-19] MEDS: carvediloL 3.125 MG TABLET 6.25 MG PO ×2 (08:19→20:17)
[2021-01-19] MEDS: INFLUENZA VACCINE QIV 0.5 ML SYRINGE IM (11:40)
[2021-01-19] MEDS: INSULIN LISPRO 100 UNIT/ML 3ML VIAL SUBCUT ×2 (11:52→16:42)
--- NOTE | 2021-01-19 15:26 | PC.NURSE ---
Addendum entered by Joaquina Limon R.N. 01/19/21 19:48: Patient taken off 1:1 precautions due to no suicidal ideation Addendum entered by Joaquina Limon R.N. 01/19/21 16:53: Patient requesting something for his arthritis in his knee. I asked if he takes anything at home for this and he states some sort of cream. Informed Dr. Boogie and diclofenac gel was ordered. Addendum entered by Joaquina Limon R.N. 01/19/21 16:07: Patient met with Dr. Boogie and social work and denies suicidal ideation. He states that he has no plan and the thoughts come when he is in pain. Original Note: Patient states vague/frequent SI with no plan, but describes depression and anxiety as well as off and on visual hallucinations. Patient on 1L NC with sats in the lower 90s and tachypneic at 28 per minute with clear lung sounds but a frequent cough and unable to lie flat. Patient describes need for stool softener as previous times he was given lasix, he was very constipated and feels this is starting now. Will request stool softener from provider. PRN clonazepam for anxiety.
[2021-01-19] MEDS: FUROSEMIDE 100 MG/10 ML VIAL 60 MG IV ×2 (15:35→23:53)
--- NOTE | 2021-01-19 16:55 | CM.DANOTE ---
DCP/Assessement: Reviewed chart. Patient is a 60yr old male admitted [facility] with abdominal pain/chest pain with h/o CHF. PCP listed is Kenzie Grigsby. Primary payor is Medicaid. Met with with patient explained CM/SW role. Nrsg reports that patient has had a sitter because apparently he mentioned to staff that he felt suicidal? Patient alert, oriented, and resting in bed at time of visit. Patient denies any current suicidal ideation. Patient does report that when he feels bad he does sometimes has suicidal ideation. Patient denies any previous suicide attempts in the past. Patient does report ongoing depression. Patient currently takes trazodone and clonazepam. Patient reports that he does not see anyone for mental health. Patient reports that medications are prescribed by his PCP. Patient offered MH resources for outpatient follow up but declined. Patient denies illicit drug use but does report he used to do meth which he reports he has not used for years. Patient does report that he uses marijuana on occasion and no alcohol. Patient resides with his son and has no current concerns about his living arrangements. Patient attributes any suicidal ideation that he has had in the past to is chronic medical conditions. Patient reports that he hopes to be able to d/c home tomorrow. P: Home when stable. Patient denies any suicidal ideation at this time. Patient does admit to feeling so bad (medically) yesterday that he might have said something about feeling suicidal but patient denies any previous attempts and/or any type of plan. BREANNE Discharge Planning/Care Management CM Discharge Assessment Start: 01/19/21 16:50 Freq: Status: Active Protocol: Document 01/19/21 16:50 BREANNE (Rec: 01/19/21 16:53 BREANNE [id number]) Discharge Planning Assessment Assigned Director Physical ANGELA Good Contact Information Raman Roldan (son)ph# [phone] Advance Directives? No History Provided By Patient,Medical Record Prior Living Arrangements Apartment/Condo Household Members children Independent with ADL's Yes Is patient alert and oriented? Yes Caregiver for Another No DME Already Rented / Owned Wheelchair,FWW / Walker,Cane, Other Comment Patient reports that he has electric bike as well. Barriers to Discharge No Discharge Plan Home Transportation Arrangement Family to provide transport. Referrals Initiated Other Additional Comment [employer] offered mental health resources and patient declined . Michelineboard Updated in Patient Room with Yes name and ext. # of Director Physical Review Status In Process Next Review Type Continued Stay Review Document 01/19/21 16:54 KJS (Rec: 01/19/21 16:54 KJS [id number]) Discharge Planning Assessment Assigned Director Physical ANGELA Good Contact Information Raman Roldan (son)ph# [phone] Advance Directives? No History Provided By Patient,Medical Record Prior Living Arrangements Apartment/Condo Household Members children Independent with ADL's Yes Is patient alert and oriented? Yes Caregiver for Another No DME Already Rented / Owned Wheelchair,FWW / Walker,Cane, Other Comment Patient reports that he has electric bike as well. Barriers to Discharge No Comment Pending needs Discharge Plan Home Transportation Arrangement Family to provide transport. Referrals Initiated Other Additional Comment [employer] offered mental health resources and patient declined . Whiteboard Updated in Patient Room with Yes name and ext. # of Director Physical Review Status In Process Next Review Type Continued Stay Review
[2021-01-19] MEDS: DICLOFENAC 1% GEL 100 GM 1 APPLIC TOP ×2 (17:32→20:17)
--- NOTE | 2021-01-19 18:36 | PM.PN.1 ---
Subjective Subjective Interval history: Patient admitted for Chest pain and CHF. He denies any shortness of breath or chest pain. Patient admits to being depressed but denies suicidal ideation Exam Vital Signs (past 8 hours): - 01/19/21 11:42 01/19/21 14:50 01/19/21 14:51 Temperature 97.7 F Pulse Rate 74 82 Respiratory Rate 22 16 Blood Pressure 123/81 Pulse Oximetry 97 94 94 01/19/21 15:00 01/19/21 17:58 Temperature 97.6 F Pulse Rate 90 Respiratory Rate 28 H Blood Pressure 132/90 Pulse Oximetry 92 94 Oxygen Delivery Method Room Air Oxygen Flow Rate 1 Narrative Exam Narrative: sad, ill appearing male HENMT Other: NC/AT Resp Other: Lungs: decreased breath sounds but clear to auscultation Cardio Other: RRR nl Sl S2 +S3 GI Other: Abd: Soft/ non tender/non distended Extrem Other: 2+ edema Objective Labs Result Diagrams: 01/19/21 04:55 01/19/21 04:55 Labs: Laboratory Results - last 24 hr 01/18/21 01/18/21 01/18/21 17:20 17:20 19:17 WBC RBC Hgb Hct MCV MCH MCHC RDW Plt Count Neut % (Auto) Lymph % (Auto) [place] % (Auto) Eos % (Auto) Baso % (Auto) Neut # (Auto) Lymph # (Auto) [place] # (Auto) Eos # (Auto) Baso # (Auto) PT INR APTT Sodium Potassium Chloride Carbon Dioxide BUN Creatinine Estimated GFR BUN/Creatinine Ratio Glucose Hemoglobin A1c 9.5 H Calcium Total Bilirubin Conjugated Bilirubin Unconjugated Bilirubin AST ALT Alkaline Phosphatase Troponin I 0.061 H NT-Pro-B Natriuret Pep Total Protein Albumin Globulin Albumin/Globulin Ratio Triglycerides Cholesterol LDL Cholesterol, Calc HDL Cholesterol TSH 3.71 SARS-CoV-2 (PCR) 01/18/21 01/18/21 01/19/21 20:53 21:05 04:55 WBC 11.2 H RBC 4.86 Hgb 14.2 Hct 44.9 MCV 92.4 MCH 29.2 MCHC 31.6 RDW 15.0 H Plt Count 164 Neut % (Auto) 55.1 Lymph % (Auto) 29.5 [place] % (Auto) 13.8 Eos % (Auto) 1.1 L Baso % (Auto) 0.5 Neut # (Auto) 6100 Lymph # (Auto) 3300 [place] # (Auto) 1500 H Eos # (Auto) 100 Baso # (Auto) 100 PT INR APTT Sodium Potassium Chloride Carbon Dioxide BUN Creatinine Estimated GFR BUN/Creatinine Ratio Glucose Hemoglobin A1c Calcium Total Bilirubin Conjugated Bilirubin Unconjugated Bilirubin AST ALT Alkaline Phosphatase Troponin I 0.067 H NT-Pro-B Natriuret Pep Total Protein Albumin Globulin Albumin/Globulin Ratio Triglycerides Cholesterol LDL Cholesterol, Calc HDL Cholesterol TSH SARS-CoV-2 (PCR) Negative 01/19/21 01/19/21 04:55 04:55 WBC RBC Hgb Hct MCV MCH MCHC RDW Plt Count Neut % (Auto) Lymph % (Auto) [place] % (Auto) Eos % (Auto) Baso % (Auto) Neut # (Auto) Lymph # (Auto) [place] # (Auto) Eos # (Auto) Baso # (Auto) PT 21.0 H INR 1.8 H APTT 36 Sodium 142 Potassium 3.7 Chloride 103 Carbon Dioxide 32 BUN 46 H Creatinine 1.60 H Estimated GFR 44.5 L BUN/Creatinine Ratio 28.8 H Glucose 104 H Hemoglobin A1c Calcium 8.8 Total Bilirubin 1.3 Conjugated Bilirubin 0.0 Unconjugated Bilirubin 1.1 AST 99 H ALT 150 H Alkaline Phosphatase 71 Troponin I 0.070 H NT-Pro-B Natriuret Pep 3730 H Total Protein 6.4 Albumin 3.9 Globulin 2.5 Albumin/Globulin Ratio 1.6 Triglycerides 59 Cholesterol 62 L LDL Cholesterol, Calc 39 HDL Cholesterol 11 L TSH SARS-CoV-2 (PCR) PFS Medical History (Updated 01/19/21 @ 01:55 by SHAUNNA Laguna) Chronic a-fib CKD (chronic kidney disease) stage 3, GFR 30-59 ml/min Congestive heart failure Dilated cardiomyopathy Essential hypertension Hepatomegaly History of cardiac pacemaker in situ Hyperlipidemia associated with type 2 diabetes mellitus Insulin dependent type 2 diabetes mellitus Multiple substance abuse Obesity (BMI 30.0-34.9) Steatosis of liver Surgical History (Updated 01/18/21 @ 23:17 by SHAUNNA Laguna) History of cholecystectomy History of implantable cardiac defibrillator (ICD) Status post placement of cardiac pacemaker Family History (Updated 01/19/21 @ 01:54 by SHAUNNA Laguna) Sister Brain aneurysm Father Diabetes mellitus Heart disease Lupus Social History household members: children Smoking Status: Never smoker alcohol intake: former Assessment & Plan Assessment & Plan narrative: ?Chest pain with shortness of breath, CHF exacerbation, right systolic with ejection fraction 10-15%, in the setting of elevated troponins, acute on chronic, present on admission -poss NSTEMI -troponin 1.? 0.049, 2.? 0.061, 3. 0.067 without EKG changes -Dr. [place] Cardiology consult from ED, patient not a candidate recommended for further interventions at this time, appropriate for admit. -initial BNP 3260 -IV Lasix 20 mg b.i.d.-titrate for diuresis, monitor for hyponatremia -patient monitored on telemedicine, will repeat troponin in the a.m. -patient's EKG remains unchanged, patient is not in distress, satting in the high 90s on room air, chest pain is improving 5/10 on admit, B/P 112/92. -Heparin Held until after US, in case the patient will require paracentesis. No ascities present Increase lasix to 60 mg IV q8 for aggressive diuresis Follow lytes in AM 2. Lower abdominal pain, acute, in the setting hepatomegaly with steatosis, present on admission -possible ascites contributing to patient's shortness of breath. -ABD US ordered for tomorrow Ultrasound negative for ascites 3. Insulin dependent type 2 diabetes, acute on chronic, with related hyperlipidemia, acute on chronic, present on admission-uncontrolled -initial blood sugar 180, A1c 9.5% -patient admitted under diabetic protocol, monitor for hypoglycemia -titrate Lantus dose based on a.m. blood sugar goal 120 -continue Lantus & sliding scale correctional, BS Q ACHS -continue patient's simvastatin 4. Non-ischemic dilated cardiomyopathy, with PPM and Bi-V ICD, chronic, present on admssion -initial BNP 3260 ?- continue diuresis with IV lasix 20 mg IV BID to see if improvement in symptoms as noted above.No prior TTE available for review at this time. ?- will obtain TTE for suspected acute on chronic heart failure. ?- JETHRO, hepatic congestion likely in setting of heart failure. ?- strict Is and Os. -increase diuresis as above 5. History of PPM placement, atrial fibrillation, chronic, present on admission ?- placed 03/2020 at [facility]. EKG shows paced rhythm.? 6. Polystubstance use with history of methamphetamine use (remission x9 years) and current marijuana use, acute on chronic, present on admission ?-counseled on marijuana cessation as noted above. 7. CKD III, chronic, present on admission ?-admitting BUN 46, creatinine 1.59, GFR 44.8-no JETHRO as these are baseline for this patient. -continue to monitor electrolytes during diuresis 8. Essentional hypertension, chronic, present on admission -continue patient's carvedilol spirolactone 9. Depression, chronic, present on admission -continue patient's trazodone, and clonazepam -no suidical ideation 10. Obesity as evidence by BMI of 34.8, acute on chronic, present on admission -consideration will be given for dietary counseling 11. Obstructive sleep apnea with CPAP, chronic, present on admission -respiratory consulted- cpap -a DuoNeb q.4 hours as needed for shortness of breath Code status:? Full code, had previously been a DNR on hospice, patient has since come off hospice. Surrogate decision maker: Hoda Roldan Time Spent With Patient Critical Care time: I spent a total of [] minutes of critical care time on this patient's care today; this time is exclusive of procedural time.
[2021-01-19] MEDS: HEPARIN 5,000 UNIT/ML VIAL 5000 UNIT SUBCUT (20:16)
[2021-01-19] MEDS: ATORVASTATIN 20 MG TABLET 10 MG PO (20:17)
[2021-01-19] MEDS: INSULIN GLARGINE 100 UNIT/ML 3ML PEN 35 UNIT SUBCUT (20:48)
[2021-01-20] VITALS (8 sets, daily range): BP systolic 102–146; BP diastolic 46–74; PULSE 58–95; RESP 20–24; TEMP 35.7–36.9; O2SAT 90–99
--- NOTE | 2021-01-20 05:08 | PC.NURSE ---
Patient requested to not use CPAP machine and requested 1L NC instead at beginning of shift. RT notified and okay. O2 96% with the 1L NC. At 0430, patient O2 was 90% and patient was requesting more O2. NC increased to 2L, O2 increased to 95-96%. Will continue to monitor.
[2021-01-20 05:47] LABS: Alanine Aminotransferase 127 IU/L (<50); Albumin Globulin Ratio 1.5 (1.0-2.8); Alkaline Phosphatase 71 U/L (38-126); Aspartate Aminotransferase 75 IU/L (17-59); BUN Creatinine Ratio 27.6 (6-22); Bilirubin Total 1.6 mg/dL (0.2-1.3); Blood Urea Nitrogen 43 mg/dL (9-20); Carbon Dioxide 34 mmol/L (22-32); Chloride 99 mmol/L (98-107); Estimated Glomerular Filt Rate 45.8 mL/min (>60); Globulin 2.6 g/dL (1.7-4.1); Glucose 117 mg/dL (70-100); HEMOLYSIS 20 (0-50); Sodium 141 mmol/L (137-145); Total Protein 6.6 g/dL (6.3-8.2)
[2021-01-20 05:55] LABS: NT-proBNP (BNP-Adult 18+) 4110 pg/mL (<125)
[2021-01-20] MEDS: SODIUM CHLORIDE 0.9% FLUSH 10 ML IV ×2 (06:33→08:35)
[2021-01-20] MEDS: FUROSEMIDE 100 MG/10 ML VIAL 60 MG IV (06:33)
[2021-01-20] MEDS: HEPARIN 5,000 UNIT/ML VIAL 5000 UNIT SUBCUT (08:28)
[2021-01-20] MEDS: carvediloL 3.125 MG TABLET 6.25 MG PO (08:28)
[2021-01-20] MEDS: DOCUSATE 100 MG CAPSULE 200 MG PO (08:28)
[2021-01-20] MEDS: DICLOFENAC 1% GEL 100 GM 1 APPLIC TOP (08:28)
[2021-01-20] MEDS: INSULIN LISPRO 100 UNIT/ML 3ML VIAL SUBCUT ×2 (08:29→12:21)
[2021-01-20] MEDS: clonazePAM 0.5 MG TABLET PO (08:49)
[2021-01-20] MEDS: MAGNESIUM HYDROXIDE 30 ML UDC PO (12:21)
--- NOTE | 2021-01-20 12:42 | PM.DS.1 ---
History of Present Illness History of Present Illness Date Patient Seen: 01/20/21 Time Patient Seen: 12:43 Chief complaint: SOB HARD TIME SLEEPING NO APPETITE Narrative: Patient is a 60-year-old male with history of dilated cardiomegaly with ppm, right systolic congestive heart failure with an ICD an EF 10-15%, chronic atrial fibrillation, multisubstance use, CKD III, HTN, HLD, CLAUDIA with CPAP, type 2 insulin-dependent diabetic, and hx of meth abuse clean x 9 yrs who presented with 5 days of increasing mid upper chest tightness and shortness of breath.? He says he is becoming more short of breath with exertion than normal. Patient notes increased swelling in his abd, with bilateral lower abd pain, is dry heaving but no vomiting, no cough, he notes that his chest pain comes and goes but worsens with deep breathing. Denies any increased swelling in his legs, fever, body aches, but does not that he has been having severe diaphoresis during the night with chills.? He says previously been in congestive heart failure, not sure if he is in it now.?Patient is followed by [facility] cardiology and is not on any anticoagulation.? He was previously on hospice but no longer is, and requests to be a FULL CODE. Dr. Martinez Consult in ED:Dr. Dejesus (Cardiology) feels at this time patient is appropriate to stay here.? We did review patient's echo from June which was 10-15% which was worsened from his priors.? His troponin trended upwards this evening from 0.04-0.061 and then 0.067.? Patient's BNP is 3200 today. Patient's vitals were stable upon admit and was in no distress, respirations were slightly tachypneic at 29, O2 saturation 97% on room air.? Patient did have a mildly elevated WBC at 12.1, neutrophils 7200.? BUN 46, creatinine 1.59, GFR 44.8 these are all consistent with patient's CKD stage 3, glucose 180, proBNP 30-60, troponin 1.? 0.049, 2.? 0.061, 0.0 6 7.? Patient had a echo done on 07/08/[address] chyna arellano with an ejection fraction of 10-15% patient does have a pacemaker in place.? Patient's chest CTA was negative for pulmonary embolus, chest x-ray demonstrated moderate cardiomegaly a, no acute cardiopulmonary processes at this time.? Patient admitted for chest pain, CHF exacerbation, possible NSTEMI with elevated troponins. Discharge Providers Provider Date of admission: 01/18/21 20:48 Discharge Date: 01/20/21 Primary care physician: Kenzie Grigsby DO Consults: 01/18/21 22:38 Consult to Respiratory Therapy Evaluate & Treat Comment: SOB, may use CPAP Physician Instructions: Evaluate and treat 01/19/21 04:09 Consult to Dietitian, Adult Routine Comment: Reason For Exam: MNA=10 Discharge provider: Zoe Boogie MD Summary Hospital Course Discharge Diagnosis: 1. Acute systolic heart failure, ejection fraction 10-15% 2. Chronic atrial fibrillation 3. Hypertension 4. Hyperlipidemia 5. Type 2 diabetes 6. Chronic kidney disease stage 3 7. History of cardiac pacemaker 8. Obesity Hospital Course: Patient was admitted to the hospital for worsening shortness of breath. He admits to dietary indiscretion with excessive salty foods. He states his daughter is a plating stripper and will discuss food choices with her. He has diuresed nicely, he denies any shortness of breath or chest pain. Patient feels back to baseline and would like to be discharged home. He will follow up with Dr. Maggie Grigsby. Patient was instructed to weigh himself daily and call MD for weight over 3 pounds. He has no complaints at this time. Patient was referred back to his airport tower controller for further evaluation. Status at Discharge Cognitive/behavioral status at discharge: oriented Functional status at discharge: independent ambulation Overall status at discharge: patient is back to baseline Exam Vital Signs (past 8 hours): - 01/20/21 06:00 01/20/21 08:00 01/20/21 08:28 Temperature 98.4 F Pulse Rate 92 H 92 H Respiratory Rate 20 Blood Pressure 127/74 127/74 Pulse Oximetry 95 90 L 01/20/21 09:16 01/20/21 12:00 Temperature 97.8 F Pulse Rate 85 Respiratory Rate 20 Blood Pressure 146/46 H Pulse Oximetry 99 98 Oxygen Delivery Method Room Air Oxygen Flow Rate 0 Narrative Exam Narrative: pleasant gentleman resting in bed Resp Other: Lungs: decreased breath sounds but clear to auscultation Cardio Other: irregularly irregular nl Sl S2 3/6 ROSSANA GI Other: Abdomen soft/ non tender Extrem Other: 1+ edema bilaterally Objective Labs Result Diagrams: 01/19/21 04:55 01/20/21 05:05 Labs: Laboratory Results - last 24 hr 01/20/21 01/20/21 05:05 05:05 Sodium 141 Potassium 4.0 Chloride 99 Carbon Dioxide 34 H BUN 43 H Creatinine 1.56 H Estimated GFR 45.8 L BUN/Creatinine Ratio 27.6 H Glucose 117 H Calcium 9.0 Total Bilirubin 1.6 H AST 75 H ALT 127 H Alkaline Phosphatase 71 NT-Pro-B Natriuret Pep 4110 H Total Protein 6.6 Albumin 4.0 Globulin 2.6 Albumin/Globulin Ratio 1.5 PFSH Medical History (Updated 01/19/21 @ 01:55 by CITLALI LagunaLOS) Chronic a-fib CKD (chronic kidney disease) stage 3, GFR 30-59 ml/min Congestive heart failure Dilated cardiomyopathy Essential hypertension Hepatomegaly History of cardiac pacemaker in situ Hyperlipidemia associated with type 2 diabetes mellitus Insulin dependent type 2 diabetes mellitus Multiple substance abuse Obesity (BMI 30.0-34.9) Steatosis of liver Surgical History (Updated 01/18/21 @ 23:17 by CITLALI LagunaLOS) History of cholecystectomy History of implantable cardiac defibrillator (ICD) Status post placement of cardiac pacemaker Family History (Updated 01/19/21 @ 01:54 by CITLALI LagunaLOS) Sister Brain aneurysm Father Diabetes mellitus Heart disease Lupus Social History household members: children Smoking Status: Never smoker alcohol intake: former Discharge Assessment & Plan Assessment and Plan Assessment: Chronic Systolic Heart Failure Chronic Atrial Fibrillation Hypertension Type 2 Diabetes CKD-stage 3 Plan of Treatment: Medications as prescribed f/u with Dr. Grigsby Daily weights low sodium diet Discharge Plan Discharge Plan Patient Disposition: Home Discharge orders & Medications Prescriptions: New diclofenac sodium 3 % Gel 1 applic topical QID Qty: 30 RF: 0 docusate sodium 100 mg Capsule 200 mg PO DAILY Qty: 30 RF: 0 Continued clonazepam 0.5 mg tablet 0.5 mg PO BID PRN (Reason: Anxiety) RF: 0 spironolactone 25 mg tablet 12.5 mg PO QAM RF: 0 carvedilol 6.25 mg tablet 6.25 mg PO BID RF: 0 torsemide 20 mg tablet 40 mg PO QAM RF: 0 albuterol sulfate 2.5 mg /3 mL (0.083 %) solution for nebulization 2.5 mg continuous nebulization Q4H PRN (Reason: Wheezing) RF: 0 trazodone 50 mg tablet 50 mg PO BEDTIME RF: 0 simvastatin 20 mg tablet 20 mg PO BEDTIME RF: 0 Adult Low Dose Aspirin 81 mg Tablet 81 mg PO DAILY RF: 0 Lantus Solostar U-100 Insulin 100 unit/mL (3 mL) insulin pen 35 unit SUBCUT BEDTIME RF: 0 insulin aspart U-100 [Novolog Flexpen U-100 Insulin] 100 unit/mL (3 mL) Insulin Pen 5 unit SUBCUT TID RF: 0 Follow up/Referrals: Kenzie Grigsby DO [Primary Care Provider] - Discharge Data Primary Care Provider: Kenzie Grigsby
--- NOTE | 2021-01-20 13:34 | PC.NURSE ---
A&Ox4. VSS except for hypertensive, 146/46. BG 248 at lunch, given 3 units of insulin. Patient reported feeling anxious and requested PRn anxiety medication, was given clonazepam 0.5 mg which provided some relief. Discharge instructions reviewed. IV removed. Given prescriptions. Wheeled off of unit at 13:20. Friend driving home.
== END 2021-01-20 13:20 | disposition home or self-care (01) | DRG 291 ==
LOC: ED 20:41 → AC 01-19 07:46
PROVIDERS: Internal Medicine; Admitting Provider Nurse Practitioner Family; Emergency Provider Emergency Medicine; PCP Family Medicine; Visit Provider Nurse Practitioner Family
DX: I13.0 Hypertensive heart and chronic kidney disease with heart failure and stage 1 through stage 4 chronic kidney disease, or unspecified chronic kidney disease (principal); I50.23 Acute on chronic systolic (congestive) heart failure; I24.8 Other forms of acute ischemic heart disease; I48.20 Chronic atrial fibrillation, unspecified; N18.30 Chronic kidney disease, stage 3 unspecified; E11.22 Type 2 diabetes mellitus with diabetic chronic kidney disease; R10.30 Lower abdominal pain, unspecified; I42.0 Dilated cardiomyopathy; E78.5 Hyperlipidemia, unspecified; F32.9 Major depressive disorder, single episode, unspecified; E66.9 Obesity, unspecified; G47.33 Obstructive sleep apnea (adult) (pediatric); Z95.0 Presence of cardiac pacemaker; Z79.4 Long term (current) use of insulin; Z68.34 Body mass index [BMI] 34.0-34.9, adult; Z20.822 Contact with and (suspected) exposure to COVID-19
CPT/HCPCS: 36415; 71045; 71275; 76705; 80053; 80061; 80076; 82550; 82962; 83036; 83690; 83735; 83880; 84443; 84484; 85025; 85610; 85730; 87635; 90471; 90656; 93005; 94660; 94760; 96374; 96375; 96376; 99285; C9803; J1644; J1815; J1940; J2060; J7613; Q2038; Q9967